=== PATIENT | male | born 1965 | race American Indian/Alaskan Native ===

== ENCOUNTER 2018-10-08 18:38 | Emergency (ER) | payer MEDICARE ==
--- NOTE | 2018-10-08 19:33 | Emergency Department Report ---
Blank Doc - Documentation Documentation: This is a 53-year-old male that presents with rectal pain. Had a colonoscopy earlier today. This initial assessment/diagnostic orders/clinical plan/treatment(s) is/are subject to change based on patient's health status, clinical progression and re- assessment by fellow clinical providers in the ED. Further treatment and workup at subsequent clinical providers discretion. Patient/guardians urged not to elope from the ED as their condition may be serious if not clinically assessed and managed. Initial orders include: 1- Patient sent to MAIN ED for further evaluation and treatment 2- labs 3- UA
[2018-10-08] MEDS ORDERED: SUBLIMAZE IV ONE ×2 (19:57→21:37)
[2018-10-08] MEDS ORDERED: ZOFRAN IV ONE (19:57)
--- NOTE | 2018-10-08 20:06 | Emergency Department Report ---
HPI - General Chief Complaint: Rectal Pain Time Seen by Provider: 10/08/18 19:32 - HPI HPI: Room 21 The patient is a 53-year-old male presenting with a chief complaint pain after colonoscopy. Patient complains of pain in the rectum buttocks testicles and abdomen. The patient states he had a colonoscopy with multiple biopsies performed this morning at [facility]. The patient states he went home hoping the pain would improve but it has not. The patient states she has not contacted the [facility] physician who performed procedure. The patient states he was not given any medication to go home with Location: [See above] Duration: [See above] Quality: Pain Severity: 12/27 Modifying factors: [see above] Context: [see above] Mode of transportation: [not driving] ED Past Medical Hx - Past Medical History Hx Diabetes: Yes Hx Asthma: Yes Additional medical history: neuropathy, enlarge heart - Surgical History Additional Surgical History: Benign brain tumor removal - Family History Family history: no significant - Social History Smoking Status: Current Some Day Smoker Substance Use Type: Marijuana - Medications Home Medications: Home Medications Medication Instructions Recorded Confirmed Last Taken Type traMADol [Ultram 50 MG tab] 50 mg PO Q6H PRN #10 tablet 07/27/18 Unknown Rx Ibuprofen [Motrin 800 MG tab] 800 mg PO Q8HR PRN #10 tablet 10/09/18 Unknown Rx levoFLOXacin [Levaquin] 750 mg PO QDAY #10 tablet 10/09/18 Unknown Rx traMADol [Ultram] 50 mg PO Q6HR PRN #10 tablet 10/09/18 Unknown Rx ED Review of Systems ROS: Stated complaint: PAIN IN GENITALS Other details as noted in HPI Constitutional: no symptoms reported Eyes: denies: eye pain ENT: denies: throat pain Respiratory: no symptoms reported Cardiovascular: denies: chest pain Endocrine: no symptoms reported Gastrointestinal: abdominal pain Genitourinary: testicular pain. denies: dysuria Skin: denies: lesions Neurological: denies: headache Physical Exam - Physical Exam Vital Signs: Vital Signs 10/08/18 18:42 Temperature 98.1 F Pulse Rate 109 H Respiratory 19 Rate Blood Pressure 139/88 [Right] O2 Sat by Pulse 99 Oximetry Physical Exam: GENERAL: The patient is well-developed well-nourished male sitting on stretcher appearing to be in moderate discomfort. [] HEENT: Normocephalic. Atraumatic. Extraocular motions are intact. Patient has moist mucous membranes. NECK: Supple. Trachea midline CHEST/LUNGS: Clear to auscultation. There is no respiratory distress noted. HEART/CARDIOVASCULAR: Regular. There is no tachycardia. There is no gallop rub or murmur. ABDOMEN: Abdomen is soft, with mild discomfort to palpation in the midepigastric and right upper quadrant. Patient has normal bowel sounds. There is no abdominal distention. SKIN: There is no rash. There is no edema. There is no diaphoresis. NEURO: The patient is awake, alert, and oriented. The patient is cooperative. The patient has normal speech MUSCULOSKELETAL: There is no evidence of acute injury. ED Course Vital Signs 10/08/18 18:42 Temperature 98.1 F Pulse Rate 109 H Respiratory 19 Rate Blood Pressure 139/88 [Right] O2 Sat by Pulse 99 Oximetry ED Medical Decision Making - Lab Data Result diagrams: 10/08/18 20:07 10/08/18 20:07 Laboratory Tests 10/08/18 10/08/18 10/08/18 20:07 20:07 20:07 WBC 7.4 RBC 4.95 Hgb 14.0 Hct 42.3 MCV 85 MCH 28 MCHC 33 RDW 13.3 Plt Count 177 Lymph % (Auto) 12.9 L [place] % (Auto) 7.4 H Eos % (Auto) 0.3 Baso % (Auto) 0.5 Lymph # 1.0 L [place] # 0.6 Eos # 0.0 Baso # 0.0 Seg Neutrophils % 78.9 H Seg Neutrophils # 5.8 PT 13.2 INR 1.03 APTT 26.9 Sodium 135 L Potassium 4.4 Chloride 98.1 Carbon Dioxide 25 Anion Gap 16 BUN 14 Creatinine 0.8 Estimated GFR > 60 BUN/Creatinine Ratio 18 Glucose 325 H Calcium 9.5 Total Bilirubin 0.50 AST 14 ALT 16 Alkaline Phosphatase 140 H Total Protein 7.6 Albumin 4.2 Albumin/Globulin Ratio 1.2 Urine Color Urine Turbidity Urine pH Ur Specific [place] Urine Protein Urine Glucose (UA) Urine Ketones Urine Blood Urine Nitrite Urine Bilirubin Urine Urobilinogen Ur Leukocyte Esterase Urine WBC (Auto) Urine RBC (Auto) Urine WBC Clumps Urine Yeast (Budding) 10/08/18 21:30 WBC RBC Hgb Hct MCV MCH MCHC RDW Plt Count Lymph % (Auto) [place] % (Auto) Eos % (Auto) Baso % (Auto) Lymph # [place] # Eos # Baso # Seg Neutrophils % Seg Neutrophils # PT INR APTT Sodium Potassium Chloride Carbon Dioxide Anion Gap BUN Creatinine Estimated GFR BUN/Creatinine Ratio Glucose Calcium Total Bilirubin AST ALT Alkaline Phosphatase Total Protein Albumin Albumin/Globulin Ratio Urine Color Red Urine Turbidity Cloudy Urine pH 6.0 Ur Specific [place] 1.036 H Urine Protein 100 mg/dl Urine Glucose (UA) >=500 Urine Ketones Tr Urine Blood Lg Urine Nitrite Neg Urine Bilirubin Neg Urine Urobilinogen < 2.0 Ur Leukocyte Esterase Neg Urine WBC (Auto) > 182.0 H Urine RBC (Auto) > 182.0 Urine WBC Clumps 3+ Urine Yeast (Budding) 3+ - Radiology Data Radiology results: report reviewed (CT abdomen and pelvis, testicular ultras ound), image reviewed (CT abdomen and pelvis, testicular ultrasound) [place] [address] Cat Scan Report Signed Patient: EDUARDO RUSSELL MR#: [id number] [birth year] : 1965 Acct:[id number] Age/Sex: 53 / M ADM Date: 10/08/18 Loc: ED Attending Dr: Ordering Physician: DANNY FLORES MD Date of Service: 10/08/18 Procedure(s): CT abdomen pelvis w con Accession Number(s): [id number] cc: DANNY FLORES MD CT ABDOMEN AND PELVIS WITH CONTRAST INDICATION / CLINICAL INFORMATION: abd pain after colonoscopy around 11 a.m today blood in urine and stool . TECHNIQUE: Axial CT images were obtained through the abdomen and pelvis after IV contrast. All CT scans at this location are performed using CT dose reduction for ALARA by means of automated exposure control. COMPARISON: None available. FINDINGS: LOWER CHEST: No significant abnormality. LIVER: No significant abnormality. GALLBLADDER: No significant abnormality. BILE DUCTS: No significant abnormality. PANCREAS: No significant abnormality. SPLEEN: No significant abnormality. ADRENALS: No significant abnormality. RIGHT KIDNEY and URETER: No significant abnormality. LEFT KIDNEY and URETER: No significant abnormality. STOMACH and SMALL BOWEL: No significant abnormality. COLON: No significant abnormality. APPENDIX: No significant abnormality. PERITONEUM: No free fluid. No free air. No fluid collection. LYMPH NODES: No significant adenopathy. AORTA and ARTERIES: No significant abnormality. IVC and VEINS: No significant abnormality. URINARY BLADDER: No significant abnormality. REPRODUCTIVE ORGANS: No significant abnormality. ADDITIONAL FINDINGS: None. SKELETAL SYSTEM: No significant abnormality. IMPRESSION: 1. No significant abnormality. Signer Name: Saman Miller MD Signed: 10/08/2018 9:51 PM Workstation Name: [id number] Transcribed By: ADENIKE Dictated By: Saman Miller MD Electronically Authenticated By: Saman Miller MD Signed Date/Time: 10/08/182150 DD/ 49 TD/TT: - Medical Decision Making [facility] was contacted and state they have no record of the patient being there today for colonoscopy. - Differential Diagnosis bowel perforation, postop pain, UTI Critical care attestation.: If time is entered above; I have spent that time in minutes in the direct care of this critically ill patient, excluding procedure time. ED Disposition Clinical Impression: Abdominal pain, UTI (urinary tract infection) Disposition: TO HOME OR SELFCARE Is pt being admited?: No Does the pt Need Aspirin: No Condition: Stable Instructions: Urinary Tract Infection in Men (ED) Additional Instructions: Return to the emergency department immediately should you develop worsening symptoms, fever, inability to tolerate food or liquid or any other concerns. Prescriptions: levoFLOXacin [Levaquin] 750 mg PO QDAY #10 tablet Ibuprofen [Motrin 800 MG tab] 800 mg PO Q8HR PRN #10 tablet PRN Reason: Pain, Moderate (4-6) traMADol [Ultram] 50 mg PO Q6HR PRN #10 tablet PRN Reason: Pain Referrals: PRIMARY CARE, [Primary Care Provider] - [facility] [place] Time of Disposition: 01:04
[2018-10-08 20:23] LABS: Basophils % (Auto) 0.5 % (0.0-1.8); Eosinophils % (Auto) 0.3 % (0.0-4.3); Hematocrit 42.3 % (35.5-45.6); Lymphocytes % (Auto) 12.9 % (13.4-35.0); Mean Corpuscular HGB Conc 33 % (32-34); Mean Corpuscular Volume 85 fl (84-94); Monocytes # (Auto) 0.6 K/mm3 (0.0-0.8); Monocytes % (Auto) 7.4 % (0.0-7.3); Platelet Count 177 K/mm3 (140-440); Red Blood Count 4.95 M/mm3 (3.65-5.03); Red Cell Distribution Width 13.3 % (13.2-15.2)
[2018-10-08 20:31] LABS: INR 1.03 (0.87-1.13)
[2018-10-08 20:32] LABS: Partial Thromboplastin Time 26.9 Sec. (24.2-36.6)
[2018-10-08 20:47] LABS: Alanine Aminotransferase 16 units/L (7-56); Albumin 4.2 g/dL (3.9-5); BUN/Creatinine Ratio 18; Blood Urea Nitrogen 14 mg/dL (9-20); Calcium 9.5 mg/dL (8.4-10.2); Hemolysis Index 11
--- NOTE | 2018-10-08 21:55 | Cat Scan Report ---
CT ABDOMEN AND PELVIS WITH CONTRAST INDICATION / CLINICAL INFORMATION: abd pain after colonoscopy around 11 a.m today blood in urine and stool . TECHNIQUE: Axial CT images were obtained through the abdomen and pelvis after IV contrast. All CT scans at this location are performed using CT dose reduction for ALARA by means of automated exposure control. COMPARISON: None available. FINDINGS: LOWER CHEST: No significant abnormality. LIVER: No significant abnormality. GALLBLADDER: No significant abnormality. BILE DUCTS: No significant abnormality. PANCREAS: No significant abnormality. SPLEEN: No significant abnormality. ADRENALS: No significant abnormality. RIGHT KIDNEY and URETER: No significant abnormality. LEFT KIDNEY and URETER: No significant abnormality. STOMACH and SMALL BOWEL: No significant abnormality. COLON: No significant abnormality. APPENDIX: No significant abnormality. PERITONEUM: No free fluid. No free air. No fluid collection. LYMPH NODES: No significant adenopathy. AORTA and ARTERIES: No significant abnormality. IVC and VEINS: No significant abnormality. URINARY BLADDER: No significant abnormality. REPRODUCTIVE ORGANS: No significant abnormality. ADDITIONAL FINDINGS: None. SKELETAL SYSTEM: No significant abnormality. IMPRESSION: 1. No significant abnormality. Signer Name: Saman Miller MD Signed: 10/08/2018 9:51 PM Workstation Name: [id number]
[2018-10-08 22:08] LABS: Bilirubin,Urine NEG (Negative); Blood,Urine LG (Negative); Color,Urine Red (Yellow); Urobilinogen,Urine < 2.0 mg/dL (<2.0)
[2018-10-08 22:24] LABS: RBC,Urine > 182.0 /HPF (0.0-6.0); WBC,Urine > 182.0 /HPF (0.0-6.0)
[2018-10-08 23:27] VITALS: BP 145/92
[2018-10-09] MEDS ORDERED: NORCO 5/325 PO ONE (00:14)
[2018-10-09] MEDS ORDERED: LEVAQUIN PO ONE (00:37)
--- NOTE | 2018-10-09 00:54 | Ultrasound Report ---
ULTRASOUND SCROTUM INDICATION: bilateral testicle pain. COMPARISON None available. FINDINGS -- RIGHT TESTIS: Size: 3.4 x 2.1 x 3.2 cm. Echotexture: Normal. Color Doppler Flow: Normal. Lesions: None. EPIDIDYMIS: Size: Normal. Echotexture: Normal. Color Doppler Flow: Normal. Lesions: None. Hydrocele: None. Varicocele: None. Additional Findings: None. FINDINGS -- LEFT TESTIS: Size: 3.5 x 1.8 x 3.4 cm. Echotexture: Normal. Color Doppler Flow: Normal. Lesions: None. EPIDIDYMIS: Size: Normal. Echotexture: Normal. Color Doppler Flow: Normal. Lesions: None. Hydrocele: None. Varicocele: None. Additional Findings: None. IMPRESSION: No sonographic abnormality of the scrotum. Signer Name: Jaime Schofield MD Signed: 10/09/2018 12:50 AM Workstation Name: [id number]
== END 2018-10-09 01:13 | disposition home or self-care (01) ==
LOC: ED 18:38
DX: N39.0 Urinary tract infection, site not specified (principal); E11.9 Type 2 diabetes mellitus without complications; J45.909 Unspecified asthma, uncomplicated; F17.200 Nicotine dependence, unspecified, uncomplicated; F12.10 Cannabis abuse, uncomplicated; Z79.899 Other long term (current) drug therapy; Z88.2 Allergy status to sulfonamides; Z86.011 Personal history of benign neoplasm of the brain; Z88.8 Allergy status to other drugs, medicaments and biological substances
CPT/HCPCS: 36415; 74177; 80053; 81001; 85025; 85610; 85730; 93975; 96374; 96375; 96376; 99284; J2405; J3010; Q9967

== ENCOUNTER 2018-11-06 06:38 | Emergency (ER) | payer MEDICARE ==
[2018-11-06] MEDS ORDERED: ZOFRAN IV ONE (07:04)
[2018-11-06] MEDS ORDERED: MORPHINE IV ONE ×2 (07:04→09:39)
--- NOTE | 2018-11-06 07:08 | Emergency Department Report ---
ED General Adult HPI - General Chief complaint: Abdominal Pain Stated complaint: ABDOMINAL PAIN/HYPERGLYCEMIA Time Seen by Provider: 11/06/18 06:50 Source: patient, EMS Mode of arrival: Stretcher Limitations: No Limitations - History of Present Illness Initial comments: Patient presents to the emergency department with a chief complaint of abdominal pain that has prompted this worse over the last 7 days. Patient states that he had a colonoscopy about a week and a half ago. Patient states after the colonoscopy he became septic and was hospitalized at [facility]. Patient also complains of upper and lower extremities. Patient denies chest pain, shortness breath, or headache. -: Gradual Location: abdomen Radiation: non-radiation Severity scale (0 -10): 8 Quality: sharp Consistency: constant Improves with: none Worsens with: none Associated Symptoms: denies other symptoms Treatments Prior to Arrival: none - Related Data Previous Rx's Medication Instructions Recorded Last Taken Type traMADol [Ultram 50 MG tab] 50 mg PO Q6H PRN #10 tablet 07/27/18 Unknown Rx Ibuprofen [Motrin 800 MG tab] 800 mg PO Q8HR PRN #10 tablet 10/09/18 Unknown Rx levoFLOXacin [Levaquin] 750 mg PO QDAY #10 tablet 10/09/18 Unknown Rx traMADol [Ultram] 50 mg PO Q6HR PRN #10 tablet 10/09/18 Unknown Rx Dicyclomine [Bentyl] 10 mg PO QID PRN #20 capsule 11/06/18 Unknown Rx Metoclopramide [Reglan] 10 mg PO Q6HR PRN #20 tab 11/06/18 Unknown Rx Allergies Allergy/AdvReac Type Severity Reaction Status Date / Time sulfamethoxazole Allergy Itching Verified 10/08/18 19:32 [From Bactrim] trimethoprim [From Bactrim] Allergy Itching Verified 10/08/18 19:32 ED Review of Systems ROS: Stated complaint: ABDOMINAL PAIN/HYPERGLYCEMIA Other details as noted in HPI Comment: All other systems reviewed and negative Constitutional: denies: chills, fever Eyes: denies: eye pain, eye discharge, vision change ENT: denies: ear pain, throat pain Respiratory: denies: cough, shortness of breath, wheezing Cardiovascular: denies: chest pain, palpitations Endocrine: no symptoms reported Gastrointestinal: abdominal pain. denies: nausea, diarrhea Genitourinary: denies: urgency, dysuria Musculoskeletal: denies: back pain, joint swelling, arthralgia Skin: denies: rash, lesions Neurological: denies: headache, weakness, paresthesias Psychiatric: denies: anxiety, depression Hematological/Lymphatic: denies: easy bleeding, easy bruising ED Past Medical Hx - Past Medical History Previous Medical History?: Yes Hx Hypertension: Yes Hx Diabetes: Yes Hx Asthma: Yes Additional medical history: neuropathy, enlarge heart - Surgical History Past Surgical History?: Yes Additional Surgical History: Benign brain tumor removal - Social History Smoking Status: Current Every Day Smoker Substance Use Type: None - Medications Home Medications: Home Medications Medication Instructions Recorded Confirmed Last Taken Type traMADol [Ultram 50 MG tab] 50 mg PO Q6H PRN #10 tablet 07/27/18 Unknown Rx Ibuprofen [Motrin 800 MG tab] 800 mg PO Q8HR PRN #10 tablet 10/09/18 Unknown Rx levoFLOXacin [Levaquin] 750 mg PO QDAY #10 tablet 10/09/18 Unknown Rx traMADol [Ultram] 50 mg PO Q6HR PRN #10 tablet 10/09/18 Unknown Rx Dicyclomine [Bentyl] 10 mg PO QID PRN #20 capsule 11/06/18 Unknown Rx Metoclopramide [Reglan] 10 mg PO Q6HR PRN #20 tab 11/06/18 Unknown Rx ED Physical Exam - General Limitations: No Limitations General appearance: alert, in no apparent distress - Head Head exam: Present: atraumatic, normocephalic - Eye Eye exam: Present: normal appearance - ENT ENT exam: Present: mucous membranes moist - Neck Neck exam: Present: normal inspection - Respiratory Respiratory exam: Present: normal lung sounds bilaterally. Absent: respiratory distress - Cardiovascular Cardiovascular Exam: Present: regular rate, normal rhythm. Absent: systolic murmur, diastolic murmur, rubs, gallop - GI/Abdominal GI/Abdominal exam: Present: soft, tenderness (Diffusely TTP), normal bowel sounds. Absent: distended - Rectal Rectal exam: Present: deferred - Extremities Exam Extremities exam: Present: normal inspection - Back Exam Back exam: Present: normal inspection - Neurological Exam Neurological exam: Present: alert, oriented X3, CN II-XII intact. Absent: motor sensory deficit - Psychiatric Psychiatric exam: Present: normal affect, normal mood - Skin Skin exam: Present: warm, dry, intact, normal color. Absent: rash ED Course Vital Signs 11/06/18 11/06/18 06:47 07:31 Temperature 98.3 F 97.7 F Pulse Rate 86 82 Respiratory 16 16 Rate Blood Pressure 123/86 127/85 [Left] O2 Sat by Pulse 100 96 Oximetry ED Medical Decision Making - Lab Data Result diagrams: 11/06/18 07:09 11/06/18 07:09 Lab Results 11/06/18 11/06/18 11/06/18 Range/Units 07:09 07:09 10:34 WBC 5.6 (4.5-11.0) K/mm3 RBC 4.69 (3.65-5.03) M/mm3 Hgb 13.3 (11.8-15.2) gm/dl Hct 39.3 (35.5-45.6) % MCV 84 (84-94) fl MCH 28 (28-32) pg MCHC 34 (32-34) % RDW 13.5 (13.2-15.2) % Plt Count 223 (140-440) K/mm3 Lymph % (Auto) 25.2 (13.4-35.0) % [place] % (Auto) 13.1 H (0.0-7.3) % Eos % (Auto) 0.6 (0.0-4.3) % Baso % (Auto) 1.2 (0.0-1.8) % Lymph # 1.4 (1.2-5.4) K/mm3 [place] # 0.7 (0.0-0.8) K/mm3 Eos # 0.0 (0.0-0.4) K/mm3 Baso # 0.1 (0.0-0.1) K/mm3 Seg Neutrophils % 59.9 (40.0-70.0) % Seg Neutrophils # 3.4 (1.8-7.7) K/mm3 Sodium 127 L (137-145) mmol/L Potassium 4.7 (3.6-5.0) mmol/L Chloride 88.9 L (98-107) mmol/L Carbon Dioxide 27 (22-30) mmol/L Anion Gap 16 mmol/L BUN 23 H (9-20) mg/dL Creatinine 0.9 (0.8-1.5) mg/dL Estimated GFR > 60 ml/min BUN/Creatinine Ratio 26 % Glucose 542 H* (75-100) mg/dL POC Glucose 458 H (70-105) Calcium 8.9 (8.4-10.2) mg/dL Total Bilirubin 0.30 (0.1-1.2) mg/dL AST 14 (5-40) units/L ALT 17 (7-56) units/L Alkaline Phosphatase 236 H (35-129) units/L Total Protein 7.1 (6.3-8.2) g/dL Albumin 3.5 L (3.9-5) g/dL Albumin/Globulin Ratio 1.0 % Lipase 63 H (13-60) units/L - Radiology Data Radiology results: report reviewed - Medical Decision Making IV insulin and IV fluids given results discussed with patient Critical care attestation.: If time is entered above; I have spent that time in minutes in the direct care of this critically ill patient, excluding procedure time. ED Disposition Clinical Impression: Gastroparesis, Abdominal pain, Hyperglycemia Disposition: TO HOME OR SELFCARE Is pt being admited?: No Does the pt Need Aspirin: No Condition: Stable Instructions: Acute Nausea and Vomiting (ED), Abdominal Pain (ED), Diabetic Hyperglycemia (ED) Additional Instructions: return if worse Referrals: TONY COE MD [Primary Care Provider] - 3-5 Days [facility] [Provider Group] - 3-5 Days [facility] [Provider Group] - 3-5 Days Time of Disposition: 10:43
[2018-11-06 07:18] LABS: Basophils # (Auto) 0.1 K/mm3 (0.0-0.1); Basophils % (Auto) 1.2 % (0.0-1.8); Eosinophils % (Auto) 0.6 % (0.0-4.3); Hematocrit 39.3 % (35.5-45.6); Hemoglobin 13.3 gm/dl (11.8-15.2); Lymphocytes # (Auto) 1.4 K/mm3 (1.2-5.4); Lymphocytes % (Auto) 25.2 % (13.4-35.0); Mean Corpuscular HGB Conc 34 % (32-34); Mean Corpuscular Volume 84 fl (84-94); Monocytes # (Auto) 0.7 K/mm3 (0.0-0.8); Monocytes % (Auto) 13.1 % (0.0-7.3); Platelet Count 223 K/mm3 (140-440); Red Blood Count 4.69 M/mm3 (3.65-5.03); Red Cell Distribution Width 13.5 % (13.2-15.2)
[2018-11-06 07:33] VITALS: BP 127/85
[2018-11-06 07:39] LABS: Alanine Aminotransferase 17 units/L (7-56); Albumin 3.5 g/dL (3.9-5); BUN/Creatinine Ratio 26; Blood Urea Nitrogen 23 mg/dL (9-20); Calcium 8.9 mg/dL (8.4-10.2); Hemolysis Index 6
[2018-11-06] MEDS ORDERED: NACL 0.9% 1000 ML 1,000 ML IV ONE (07:47)
[2018-11-06] MEDS ORDERED: REGLAN IV ONE (07:47)
[2018-11-06] MEDS ORDERED: BENADRYL IV ONE (07:47)
--- NOTE | 2018-11-06 08:28 | Cat Scan Report ---
CT ABDOMEN AND PELVIS WITH CONTRAST HISTORY: Abdominal pain for 3 weeks COMPARISON: 10/08/2018 TECHNIQUE: Axial CT images were obtained through the abdomen and pelvis after 100 cc of Omnipaque 300 intravenously. Sagittal and coronal reformatted images. All CT scans at this location are performed using CT dose reduction for ALARA by means of automated exposure control. FINDINGS: CT ABDOMEN: Lung Bases: Clear. Liver: No significant abnormality. Biliary: No significant abnormality. Spleen: No significant abnormality. Unenlarged. Pancreas: No significant abnormality. Adrenals: No significant abnormality. Kidneys: No significant abnormality. Lymphatics: No lymphadenopathy. Vasculature: No significant abnormality. Bowel/Peritoneum: No significant abnormality. No free air. No free fluid. The appendix is not confide ntly identified. No inflammatory changes in the right lower quadrant. CT PELVIS: : No significant abnormality. Osseous Structures: No significant abnormality. Additional Findings: None IMPRESSION: CT abdomen and pelvis within normal limits. No abnormality is identified. No change since 10/08/2018. Signer Name: Reji Bravo Jr, MD Signed: 11/06/2018 8:24 AM Workstation Name: [id number]
[2018-11-06] MEDS ORDERED: HumuLIN R SUB-Q ONE (09:40)
== END 2018-11-06 10:59 | disposition home or self-care (01) ==
LOC: ED 06:38
DX: E11.43 Type 2 diabetes mellitus with diabetic autonomic (poly)neuropathy (principal); K31.84 Gastroparesis; E11.65 Type 2 diabetes mellitus with hyperglycemia; I10 Essential (primary) hypertension; J45.909 Unspecified asthma, uncomplicated; F17.200 Nicotine dependence, unspecified, uncomplicated; Z98.890 Other specified postprocedural states; Z88.2 Allergy status to sulfonamides; Z79.1 Long term (current) use of non-steroidal anti-inflammatories (NSAID); Z79.899 Other long term (current) drug therapy
CPT/HCPCS: 36415; 74177; 80053; 82962; 83690; 85025; 96361; 96372; 96374; 96375; 96376; 99284; J1200; J2270; J2405; J2765; J7030; Q9967; J1815

== ENCOUNTER 2019-01-21 03:43 | Emergency (ER) | payer MEDICARE ==
[2019-01-21] MEDS ORDERED: ONDANSETRON 4 MG/2 ML INJ IM ONE (04:12)
[2019-01-21] MEDS ORDERED: MORPHINE 4 MG/1 ML INJ IM ONE (04:12)
[2019-01-21] MEDS ORDERED: ONDANSETRON 4 MG/2 ML INJ ONE (04:14)
[2019-01-21] MEDS ORDERED: MORPHINE 4 MG/1 ML INJ ONE (04:15)
--- NOTE | 2019-01-21 04:15 | Emergency Department Report ---
ED General Adult HPI - General Chief complaint: Pain General Stated complaint: NEUROPATHY Time Seen by Provider: 01/21/19 04:07 Source: EMS Mode of arrival: Ambulatory Limitations: No Limitations - History of Present Illness Initial comments: Patient is 53 years old male with history of diabetes, hypertension, neuropathy and posterior arthritis. Patient presented to the ER complaining of generalized body pain and joint pain. Denied any fever, chills, nausea or vomiting. No chest pain or shortness of breath. - Related Data Previous Rx's Medication Instructions Recorded Last Taken Type traMADol [Ultram 50 MG tab] 50 mg PO Q6H PRN #10 tablet 07/27/18 Unknown Rx Ibuprofen [Motrin 800 MG tab] 800 mg PO Q8HR PRN #10 tablet 10/09/18 Unknown Rx levoFLOXacin [Levaquin] 750 mg PO QDAY #10 tablet 10/09/18 Unknown Rx traMADol [Ultram] 50 mg PO Q6HR PRN #10 tablet 10/09/18 Unknown Rx Dicyclomine [Bentyl] 10 mg PO QID PRN #20 capsule 11/06/18 Unknown Rx Metoclopramide [Reglan] 10 mg PO Q6HR PRN #20 tab 11/06/18 Unknown Rx Allergies Allergy/AdvReac Type Severity Reaction Status Date / Time sulfamethoxazole Allergy Itching Verified 10/08/18 19:32 [From Bactrim] trimethoprim [From Bactrim] Allergy Itching Verified 10/08/18 19:32 ED Review of Systems ROS: Stated complaint: NEUROPATHY Other details as noted in HPI Comment: All other systems reviewed and negative Constitutional: denies: chills, fever Respiratory: denies: cough, shortness of breath, SOB with exertion Cardiovascular: denies: chest pain, palpitations Gastrointestinal: denies: abdominal pain, nausea, vomiting, diarrhea, constipation, hematemesis, melena, hematochezia ED Past Medical Hx - Past Medical History Previous Medical History?: Yes Hx Hypertension: Yes Hx Diabetes: Yes Hx Asthma: Yes Additional medical history: neuropathy, enlarge heart - Surgical History Additional Surgical History: Benign brain tumor removal - Social History Smoking Status: Current Every Day Smoker Substance Use Type: Marijuana - Medications Home Medications: Home Medications Medication Instructions Recorded Confirmed Last Taken Type traMADol [Ultram 50 MG tab] 50 mg PO Q6H PRN #10 tablet 07/27/18 Unknown Rx Ibuprofen [Motrin 800 MG tab] 800 mg PO Q8HR PRN #10 tablet 10/09/18 Unknown Rx levoFLOXacin [Levaquin] 750 mg PO QDAY #10 tablet 10/09/18 Unknown Rx traMADol [Ultram] 50 mg PO Q6HR PRN #10 tablet 10/09/18 Unknown Rx Dicyclomine [Bentyl] 10 mg PO QID PRN #20 capsule 11/06/18 Unknown Rx Metoclopramide [Reglan] 10 mg PO Q6HR PRN #20 tab 11/06/18 Unknown Rx ED Physical Exam - General Limitations: No Limitations General appearance: alert, in no apparent distress - Head Head exam: Present: atraumatic, normocephalic, normal inspection - Eye Eye exam: Present: normal appearance, PERRL - ENT ENT exam: Present: normal exam, normal orophraynx, mucous membranes moist - Neck Neck exam: Present: normal inspection, full ROM. Absent: tenderness, meningismus, lymphadenopathy, thyromegaly - Respiratory Respiratory exam: Present: normal lung sounds bilaterally - Cardiovascular Cardiovascular Exam: Present: regular rate, normal rhythm, normal heart sounds - GI/Abdominal GI/Abdominal exam: Present: soft, normal bowel sounds. Absent: distended, tenderness, guarding, rebound, rigid, organomegaly, mass, bruit, pulsatile mass, hernia - Extremities Exam Extremities exam: Present: normal inspection, full ROM, normal capillary refill. Absent: pedal edema, calf tenderness - Back Exam Back exam: Present: normal inspection, full ROM. Absent: CVA tenderness (R), CVA tenderness (L), muscle spasm, paraspinal tenderness - Neurological Exam Neurological exam: Present: alert, oriented X3, CN II-XII intact - Psychiatric Psychiatric exam: Present: normal mood - Skin Skin exam: Present: warm, intact, normal color ED Course Vital Signs 01/21/19 03:57 Temperature 98.4 F Pulse Rate 95 H Respiratory 18 Rate Blood Pressure 123/80 O2 Sat by Pulse 100 Oximetry ED Medical Decision Making - Lab Data Result diagrams: 01/21/19 05:23 - Radiology Data Radiology results: report reviewed - Medical Decision Making Patient is 53 years old male with history of diabetes, hypertension, neuropathy and posterior arthritis. Patient presented to the ER complaining of generalized body pain and joint pain. Denied any fever, chills, nausea or vomiting. No chest pain or shortness of breath. Patient received morphine 4 mg and Zofran. Patient stated that he is feeling much better. Labs reviewed and is unremarkable. Patient stated that he has an appointment she is primary care doctor in the morning I advised him to keep his appointment and I also advised him to return to the ER if his pain is not improved. Critical care attestation.: If time is entered above; I have spent that time in minutes in the direct care of this critically ill patient, excluding procedure time. ED Disposition Clinical Impression: Acute pain Disposition: DC-01 TO HOME OR SELFCARE Is pt being admited?: No Condition: Stable Instructions: Chronic Pain (ED) Referrals: PRIMARY CARE, [Referring] - 3-5 Days
[2019-01-21 05:44] LABS: Basophils % (Auto) 0.8 % (0.0-1.8); Eosinophils # (Auto) 0.1 K/mm3 (0.0-0.4); Hematocrit 35.8 % (35.5-45.6); Hemoglobin 11.9 gm/dl (11.8-15.2); Lymphocytes # (Auto) 1.4 K/mm3 (1.2-5.4); Lymphocytes % (Auto) 23.2 % (13.4-35.0); Mean Corpuscular HGB Conc 33 % (32-34); Mean Corpuscular Volume 83 fl (84-94); Monocytes # (Auto) 0.5 K/mm3 (0.0-0.8); Monocytes % (Auto) 8.3 % (0.0-7.3); Platelet Count 171 K/mm3 (140-440); Red Blood Count 4.32 M/mm3 (3.65-5.03); Red Cell Distribution Width 14.2 % (13.2-15.2)
[2019-01-21 06:11] LABS: Alanine Aminotransferase 29 units/L (7-56); Albumin 3.9 g/dL (3.9-5); BUN/Creatinine Ratio 23; Bilirubin,Direct < 0.2 mg/dL (0-0.2); Blood Urea Nitrogen 21 mg/dL (9-20); Calcium 9.6 mg/dL (8.4-10.2); Hemolysis Index 3
[2019-01-21 07:06] VITALS: BP 111/64
== END 2019-01-21 07:02 | disposition home or self-care (01) ==
LOC: ED 03:43
DX: E11.40 Type 2 diabetes mellitus with diabetic neuropathy, unspecified (principal); I10 Essential (primary) hypertension; M19.90 Unspecified osteoarthritis, unspecified site; J45.909 Unspecified asthma, uncomplicated; F17.200 Nicotine dependence, unspecified, uncomplicated; F12.10 Cannabis abuse, uncomplicated; Z88.2 Allergy status to sulfonamides; Z88.8 Allergy status to other drugs, medicaments and biological substances; Z79.899 Other long term (current) drug therapy; Z79.1 Long term (current) use of non-steroidal anti-inflammatories (NSAID)
CPT/HCPCS: 36415; 80048; 80076; 83880; 85025; 96372; 99283; J2270; J2405

== ENCOUNTER 2019-02-02 23:11 | Emergency (ER) | payer MEDICARE ==
[2019-02-03] MEDS ORDERED: KETOROLAC 30 MG/1 ML INJ IM ONE (01:23)
--- NOTE | 2019-02-03 01:46 | Emergency Department Report ---
ED Extremity Problem HPI - General Chief complaint: Extremity Injury, Lower Stated complaint: LEG SWELLING AND PAIN Time Seen by Provider: 02/03/19 01:22 Source: patient, EMS Mode of arrival: Stretcher Limitations: No Limitations - History of Present Illness Initial comments: 53-year-old -[place] male presents to the emergency room for chronic p ain and swelling to both legs. Patient states when they get cold and he is walking makes it worse. Patient is taking nothing for pain. Patient reports he tried gabapentin because he has neuropathy which he reports has not helped. Patient has a past medical history diabetes hypertension neuropathy asthma cardiomegaly. His primary care doctor is Dr. Galloway at [place]. She was recently seen here this month for the same complaint and was given prescription for tramadol. Patient was seen here 01/21/2019 was given a prescription for Tylenol but I do not see it under the [facility] narcotic monitoring system. Patient was offered Toradol injection. Patient be given a prescription for ibuprofen 600 mg for pain management. Patient will be given a referral to paintings conservator. I discussed the patient that we do not give IV morphine for chronic pain here in the emergency room. I discussed with patient that is to be given to him by a specialist and pain management. MD Complaint: extremity pain Location: bilateral lower extremity History of Same: Yes -: Yes myalgia, Yes arthralgia Severity scale (0 -10): 10 Quality: constant Consistency: constant Improves with: nothing Worsens with: weight bearing, walking - Related Data Previous Rx's Medication Instructions Recorded Last Taken Type traMADoL [Ultram 50 MG tab] 50 mg PO Q6H PRN #10 tablet 07/27/18 Unknown Rx Ibuprofen [Motrin 800 MG tab] 800 mg PO Q8HR PRN #10 tablet 10/09/18 Unknown Rx levoFLOXacin [Levaquin] 750 mg PO QDAY #10 tablet 10/09/18 Unknown Rx traMADoL [Ultram] 50 mg PO Q6HR PRN #10 tablet 10/09/18 Unknown Rx Dicyclomine [Bentyl] 10 mg PO QID PRN #20 capsule 11/06/18 Unknown Rx Metoclopramide [Reglan] 10 mg PO Q6HR PRN #20 tab 11/06/18 Unknown Rx Ondansetron [Zofran Odt] 4 mg PO Q8HR PRN #14 tab.rapdis 01/21/19 Unknown Rx traMADoL [Ultram 50 MG tab] 50 mg PO Q4HR PRN #14 tablet 01/21/19 Unknown Rx Ibuprofen [Motrin 600 MG tab] 600 mg PO Q8H PRN #30 tablet 02/03/19 Unknown Rx Allergies Allergy/AdvReac Type Severity Reaction Status Date / Time sulfamethoxazole Allergy Itching Verified 02/02/19 23:13 [From Bactrim] trimethoprim [From Bactrim] Allergy Itching Verified 02/02/19 23:13 ED Review of Systems ROS: Stated complaint: LEG SWELLING AND PAIN Other details as noted in HPI Comment: All other systems reviewed and negative ED Past Medical Hx - Past Medical History Previous Medical History?: Yes Hx Hypertension: Yes Hx Diabetes: Yes Hx Asthma: Yes Additional medical history: neuropathy, enlarge heart - Surgical History Past Surgical History?: Yes Additional Surgical History: Benign brain tumor removal - Social History Smoking Status: Current Every Day Smoker Substance Use Type: Marijuana - Medications Home Medications: Home Medications Medication Instructions Recorded Confirmed Last Taken Type traMADoL [Ultram 50 MG tab] 50 mg PO Q6H PRN #10 tablet 07/27/18 Unknown Rx Ibuprofen [Motrin 800 MG tab] 800 mg PO Q8HR PRN #10 tablet 10/09/18 Unknown Rx levoFLOXacin [Levaquin] 750 mg PO QDAY #10 tablet 10/09/18 Unknown Rx traMADoL [Ultram] 50 mg PO Q6HR PRN #10 tablet 10/09/18 Unknown Rx Dicyclomine [Bentyl] 10 mg PO QID PRN #20 capsule 11/06/18 Unknown Rx Metoclopramide [Reglan] 10 mg PO Q6HR PRN #20 tab 11/06/18 Unknown Rx Ondansetron [Zofran Odt] 4 mg PO Q8HR PRN #14 tab.rapdis 01/21/19 Unknown Rx traMADoL [Ultram 50 MG tab] 50 mg PO Q4HR PRN #14 tablet 01/21/19 Unknown Rx Ibuprofen [Motrin 600 MG tab] 600 mg PO Q8H PRN #30 tablet 02/03/19 Unknown Rx ED Physical Exam - General Limitations: No Limitations General appearance: alert, in no apparent distress - Head Head exam: Present: atraumatic, normocephalic - Eye Eye exam: Present: normal appearance - ENT ENT exam: Present: mucous membranes moist - Extremities Exam Extremities exam: Present: tenderness, pedal edema - Back Exam Back exam: Present: full ROM - Neurological Exam Neurological exam: Present: alert, oriented X3, normal gait - Psychiatric Psychiatric exam: Present: normal affect, normal mood - Skin Skin exam: Present: warm, dry, intact, normal color. Absent: rash ED Course Vital Signs 02/03/19 02:04 Respiratory 18 Rate ED Medical Decision Making - Medical Decision Making 53-year-old -[place] male presents to the emergency room for chronic pain and swelling to both legs. Patient states when they get cold and he is walking makes it worse. Patient is taking nothing for pain. Patient reports he tried gabapentin because he has neuropathy which he reports has not helped. Patient has a past medical history diabetes hypertension neuropathy asthma cardiomegaly. His primary care doctor is Dr. Galloway at [place]. She was recently seen here this month for the same complaint and was given prescription for t ramadol. Critical care attestation.: If time is entered above; I have spent that time in minutes in the direct care of this critically ill patient, excluding procedure time. ED Disposition Clinical Impression: Chronic radicular pain of lower extremity Disposition: DC-01 TO HOME OR SELFCARE Is pt being admited?: No Does the pt Need Aspirin: No Condition: Stable Instructions: Chronic Pain (ED), Peripheral Neuropathy (ED) Prescriptions: Ibuprofen [Motrin 600 MG tab] 600 mg PO Q8H PRN #30 tablet PRN Reason: Pain Referrals: EVA GALLOWAY NP [Primary Care Provider] - 3-5 Days PAIN SPECIALIST [facility] [Provider Group] - 3-5 Days [facility], [facility] [Provider Group] - 3-5 Days
[2019-02-03 03:05] VITALS: BP 140/89
== END 2019-02-03 02:35 | disposition home or self-care (01) ==
LOC: ED 23:11
DX: M79.661 Pain in right lower leg (principal); M79.662 Pain in left lower leg; G89.29 Other chronic pain; I10 Essential (primary) hypertension; E11.40 Type 2 diabetes mellitus with diabetic neuropathy, unspecified; J45.909 Unspecified asthma, uncomplicated; F17.200 Nicotine dependence, unspecified, uncomplicated; F12.10 Cannabis abuse, uncomplicated; Z79.1 Long term (current) use of non-steroidal anti-inflammatories (NSAID); Z79.899 Other long term (current) drug therapy; Z88.2 Allergy status to sulfonamides
CPT/HCPCS: 96372; 99283; J1885

== ENCOUNTER 2019-02-09 09:56 | Emergency (ER) | payer MEDICARE ==
[2019-02-09] MEDS ORDERED: oxyCODONE /ACETAMINOPHEN 5-325MG TAB PO ONE (10:13)
[2019-02-09] MEDS ORDERED: oxyCODONE /ACETAMINOPHEN 5-325MG TAB ONE (10:14)
--- NOTE | 2019-02-09 11:35 | Ultrasound Report ---
ULTRASOUND SCROTUM INDICATION: Right testicular pain. Scrotal swelling. COMPARISON Scrotal ultrasound from 10/08/2018. FINDINGS: RIGHT TESTICLE: Measures 3.7 x 2.3 x 2.9 cm with generalized increased vascularity. No distinct mass or other significant abnormality is identified. RIGHT EPIDIDYMIS: Enlarged and edematous with increased vascularity. LEFT TESTICLE: Measures 3.8 x 1.9 x 2.4 cm with expected color flow and appearance. LEFT EPIDIDYMIS: No significant abnormality. HYDROCELE: There is a moderate right hydrocele. VARICOCELE: A varicocele is seen on the left. ADDITIONAL FINDINGS: None. IMPRESSION: 1. Acute right epididymoorchitis. 2. Moderate right hydrocele. 3. Left varicocele. Signer Name: Jaime Schofield MD Signed: 02/09/2019 11:31 AM Workstation Name: [id number]
[2019-02-09 11:49] VITALS: BP 130/83
[2019-02-09] MEDS ORDERED: KETOROLAC 30 MG/1 ML INJ IM ONE (11:49)
--- NOTE | 2019-02-09 11:52 | Emergency Department Report ---
ED Male HPI - General Chief complaint: Urogenital-Male Stated complaint: TESTICULAR PAIN RIGHT SIDE PAIN Time Seen by Provider: 02/09/19 11:47 Source: patient Mode of arrival: Ambulatory Limitations: No Limitations - History of Present Illness Initial comments: 53-year-old -[place] male presents to the emergency room complaining of testicular pain and swelling to the right testicle 3 days. Patient reports he was seen at another hospital yesterday for the same condition. Patient reports that he was discharged home on clindamycin and ibuprofen. Patient reports he did not take the ibuprofen as he feels it does not help with this pain. Patient reports that yesterday he was given a Toradol injection of 30 mg IM which she reports that helped. Patient also was given a [place] for pain by mouth today while in triage. Patient is followed by Dr. Melani Weinstein MD Complaint: testicle pain, testicle swelling Onset/Timin -: days(s) Location: right testicle Severity scale (0 -10): 10 Quality: aching Consistency: constant Improves with: medication - Related Data Previous Rx's Medication Instructions Recorded Last Taken Type traMADoL [Ultram 50 MG tab] 50 mg PO Q6H PRN #10 tablet 07/27/18 Unknown Rx Ibuprofen [Motrin 800 MG tab] 800 mg PO Q8HR PRN #10 tablet 10/09/18 Unknown Rx levoFLOXacin [Levaquin] 750 mg PO QDAY #10 tablet 10/09/18 Unknown Rx traMADoL [Ultram] 50 mg PO Q6HR PRN #10 tablet 10/09/18 Unknown Rx Dicyclomine [Bentyl] 10 mg PO QID PRN #20 capsule 11/06/18 Unknown Rx Metoclopramide [Reglan] 10 mg PO Q6HR PRN #20 tab 11/06/18 Unknown Rx Ondansetron [Zofran Odt] 4 mg PO Q8HR PRN #14 tab.rapdis 01/21/19 Unknown Rx traMADoL [Ultram 50 MG tab] 50 mg PO Q4HR PRN #14 tablet 01/21/19 Unknown Rx Ibuprofen [Motrin 600 MG tab] 600 mg PO Q8H PRN #30 tablet 02/03/19 Unknown Rx Allergies Allergy/AdvReac Type Severity Reaction Status Date / Time sulfamethoxazole Allergy Itching Verified 02/02/19 23:13 [From Bactrim] trimethoprim [From Bactrim] Allergy Itching Verified 02/02/19 23:13 ED Review of Systems ROS: Stated complaint: TESTICULAR PAIN RIGHT SIDE PAIN Other details as noted in HPI Comment: All other systems reviewed and negative ED Past Medical Hx - Past Medical History Hx Hypertension: Yes Hx Diabetes: Yes Hx Asthma: Yes Additional medical history: neuropathy, enlarge heart - Surgical History Additional Surgical History: Benign brain tumor removal - Social History Smoking Status: Current Every Day Smoker Substance Use Type: None - Medications Home Medications: Home Medications Medication Instructions Recorded Confirmed Last Taken Type traMADoL [Ultram 50 MG tab] 50 mg PO Q6H PRN #10 tablet 07/27/18 Unknown Rx Ibuprofen [Motrin 800 MG tab] 800 mg PO Q8HR PRN #10 tablet 10/09/18 Unknown Rx levoFLOXacin [Levaquin] 750 mg PO QDAY #10 tablet 10/09/18 Unknown Rx traMADoL [Ultram] 50 mg PO Q6HR PRN #10 tablet 10/09/18 Unknown Rx Dicyclomine [Bentyl] 10 mg PO QID PRN #20 capsule 11/06/18 Unknown Rx Metoclopramide [Reglan] 10 mg PO Q6HR PRN #20 tab 11/06/18 Unknown Rx Ondansetron [Zofran Odt] 4 mg PO Q8HR PRN #14 tab.rapdis 01/21/19 Unknown Rx traMADoL [Ultram 50 MG tab] 50 mg PO Q4HR PRN #14 tablet 01/21/19 Unknown Rx Ibuprofen [Motrin 600 MG tab] 600 mg PO Q8H PRN #30 tablet 02/03/19 Unknown Rx ED Physical Exam - General Limitations: No Limitations General appearance: alert, in no apparent distress - Head Head exam: Present: atraumatic, normocephalic - Eye Eye exam: Present: normal appearance - ENT ENT exam: Present: mucous membranes moist - Neurological Exam Neurological exam: Present: alert, oriented X3 - Psychiatric Psychiatric exam: Present: normal affect, normal mood - Skin Skin exam: Present: warm, dry, intact, normal color. Absent: rash ED Medical Decision Making - Medical Decision Making 53-year-old -[place] male presents to the emergency room complaining of testicular pain and swelling to the right testicle 3 days. Patient reports he was seen at another hospital yesterday for the same condition. Patient reports that he was discharged home on clindamycin and ibuprofen. Patient reports he did not take the ibuprofen as he feels it does not help with this pain. Patient reports that yesterday he was given a Toradol injection of 30 mg IM which she reports that helped. Patient also was given a [place] for pain by mouth today while in triage. Patient is followed by Dr. Melani Cole. Patient was given a prescription for tramadol on 02/07/2019 as well as 2018. Patient appears to have chronic pain as he has multiple prescriptions for narcotics. Patient is to complete his clindamycin as prescribed follow up with urology as he was referred to an intake ibuprofen. Critical care attestation.: If time is entered above; I have spent that time in minutes in the direct care of this critically ill patient, excluding procedure time. ED Disposition Clinical Impression: Epididymitis, right Disposition: DC-01 TO HOME OR SELFCARE Is pt being admited?: No Does the pt Need Aspirin: No Condition: Stable Instructions: Epididymitis (ED) Additional Instructions: Continue with the clindamycin antibiotics ibuprofen as needed for pain management and to follow up with urologist in your primary care provider Referrals: CB LEE MD [Staff Physician] - 3-5 Days Forms: STI Treatment and Prevention
== END 2019-02-09 12:36 | disposition home or self-care (01) ==
LOC: ED 09:56
DX: N45.1 Epididymitis (principal); I10 Essential (primary) hypertension; J45.909 Unspecified asthma, uncomplicated; E11.40 Type 2 diabetes mellitus with diabetic neuropathy, unspecified; F17.200 Nicotine dependence, unspecified, uncomplicated; Z88.2 Allergy status to sulfonamides; Z88.5 Allergy status to narcotic agent; Z79.1 Long term (current) use of non-steroidal anti-inflammatories (NSAID)
CPT/HCPCS: 93975; 96372; 99284; J1885

== ENCOUNTER 2019-06-16 07:42 | Emergency (ER) | payer MEDICARE ==
[2019-06-16 07:58] VITALS: BP 162/102
[2019-06-16] MEDS ORDERED: HYDROcodone/ACETAMINOPHEN 5-325 MG TAB PO ONE (11:35)
--- NOTE | 2019-06-16 11:52 | Emergency Department Report ---
ED General Adult HPI - General Chief complaint: Extremity Injury, Lower Stated complaint: BILATERAL ANKLE SWELLING Time Seen by Provider: 06/16/19 11:12 Source: patient, EMS Mode of arrival: Ambulatory Limitations: No Limitations - History of Present Illness Initial comments: Patient is a 54-year-old male presents emergency room with complaints of ankle and feet pain and swelling that began 2 days ago. He states he has has had this intermittently over the last year. He states the swelling will come and go down. He states that he saw his primary care doctor Dr. Hines at [facility] who diagnosed him with neuropathy. He states that he has been prescribed gabapentin but does not take it like he supposed to because it causes stomach upset. Patient states that he also has an abscess in the rectal region that began a couple of days ago. He denies any drainage. He denies any fever, chills, vomiting. He has a past medical history of DM, neuropathy, asthma, hypertension. He states he did not take his blood pressure medication today. He has an allergy to Bactrim. - Related Data Previous Rx's Medication Instructions Recorded Last Taken Type traMADoL [Ultram 50 MG tab] 50 mg PO Q6H PRN #10 tablet 07/27/18 Unknown Rx Ibuprofen [Motrin 800 MG tab] 800 mg PO Q8HR PRN #10 tablet 10/09/18 Unknown Rx levoFLOXacin [Levaquin] 750 mg PO QDAY #10 tablet 10/09/18 Unknown Rx traMADoL [Ultram] 50 mg PO Q6HR PRN #10 tablet 10/09/18 Unknown Rx Dicyclomine [Bentyl] 10 mg PO QID PRN #20 capsule 11/06/18 Unknown Rx Metoclopramide [Reglan] 10 mg PO Q6HR PRN #20 tab 11/06/18 Unknown Rx Ondansetron [Zofran Odt] 4 mg PO Q8HR PRN #14 tab.rapdis 01/21/19 Unknown Rx traMADoL [Ultram 50 MG tab] 50 mg PO Q4HR PRN #14 tablet 01/21/19 Unknown Rx Ibuprofen [Motrin 600 MG tab] 600 mg PO Q8H PRN #30 tablet 02/03/19 Unknown Rx Azithromycin [Zithromax TAB] 1,000 mg PO ONCE #2 tablet 03/16/19 Unknown Rx Cefixime [Suprax] 400 mg PO ONCE #1 capsule 03/16/19 Unknown Rx Ketorolac [Toradol] 10 mg PO Q6H PRN #14 tablet 03/16/19 Unknown Rx metroNIDAZOLE [Flagyl] 2,000 mg PO ONCE #4 tablet 03/16/19 Unknown Rx Doxycycline Hyclate [Doxycycline 100 mg PO BID 10 Days #20 tab 06/16/19 Unknown Rx Hyclate TAB] traMADoL [Ultram 50 MG tab] 50 mg PO Q8HR PRN #7 tablet 06/16/19 Unknown Rx Allergies Allergy/AdvReac Type Severity Reaction Status Date / Time sulfamethoxazole Allergy Itching Verified 02/02/19 23:13 [From Bactrim] trimethoprim [From Bactrim] Allergy Itching Verified 02/02/19 23:13 ED Review of Systems ROS: Stated complaint: BILATERAL ANKLE SWELLING Other details as noted in HPI Comment: All other systems reviewed and negative ED Past Medical Hx - Past Medical History Previous Medical History?: Yes Hx Hypertension: Yes Hx Diabetes: Yes Hx Asthma: Yes Additional medical history: neuropathy, enlarge heart - Surgical History Past Surgical History?: Yes Additional Surgical History: Benign brain tumor removal - Social History Smoking Status: Never Smoker Substance Use Type: None - Medications Home Medications: Home Medications Medication Instructions Recorded Confirmed Last Taken Type traMADoL [Ultram 50 MG tab] 50 mg PO Q6H PRN #10 tablet 07/27/18 Unknown Rx Ibuprofen [Motrin 800 MG tab] 800 mg PO Q8HR PRN #10 tablet 10/09/18 Unknown Rx levoFLOXacin [Levaquin] 750 mg PO QDAY #10 tablet 10/09/18 Unknown Rx traMADoL [Ultram] 50 mg PO Q6HR PRN #10 tablet 10/09/18 Unknown Rx Dicyclomine [Bentyl] 10 mg PO QID PRN #20 capsule 11/06/18 Unknown Rx Metoclopramide [Reglan] 10 mg PO Q6HR PRN #20 tab 11/06/18 Unknown Rx Ondansetron [Zofran Odt] 4 mg PO Q8HR PRN #14 tab.rapdis 01/21/19 Unknown Rx traMADoL [Ultram 50 MG tab] 50 mg PO Q4HR PRN #14 tablet 01/21/19 Unknown Rx Ibuprofen [Motrin 600 MG tab] 600 mg PO Q8H PRN #30 tablet 02/03/19 Unknown Rx Azithromycin [Zithromax TAB] 1,000 mg PO ONCE #2 tablet 03/16/19 Unknown Rx Cefixime [Suprax] 400 mg PO ONCE #1 capsule 03/16/19 Unknown Rx Ketorolac [Toradol] 10 mg PO Q6H PRN #14 tablet 03/16/19 Unknown Rx metroNIDAZOLE [Flagyl] 2,000 mg PO ONCE #4 tablet 03/16/19 Unknown Rx Doxycycline Hyclate [Doxycycline 100 mg PO BID 10 Days #20 tab 06/16/19 Unknown Rx Hyclate TAB] traMADoL [Ultram 50 MG tab] 50 mg PO Q8HR PRN #7 tablet 06/16/19 Unknown Rx ED Physical Exam - General Limitations: No Limitations General appearance: alert, in no apparent distress - Head Head exam: Present: atraumatic, normocephalic - Eye Eye exam: Present: normal appearance - ENT ENT exam: Present: mucous membranes moist - Respiratory Respiratory exam: Present: normal lung sounds bilaterally. Absent: respiratory distress, wheezes, rales, rhonchi, stridor, chest wall tenderness, accessory muscle use, decreased breath sounds, prolonged expiratory - Cardiovascular Cardiovascular Exam: Present: regular rate, normal rhythm, normal heart sounds. Absent: systolic murmur, diastolic murmur, rubs, gallop - Rectal Rectal exam: Present: other (0.5 cm area of induration on the ouside of the rectum at the 3 oclock position, no surrouding erythema, no necrosis, no drainage present, lining printer: ELIANE Hines) - Extremities Exam Extremities exam: Present: other (small amount of edema present to the bilateral ankles and feet, there is no erythema, no increased warmth, FROM of the BLE, neurovascularly intact, there are some varicose veins present on the legs) - Neurological Exam Neurological exam: Present: alert, oriented X3 - Psychiatric Psychiatric exam: Present: normal affect, normal mood - Skin Skin exam: Present: warm, dry ED Course Vital Signs 06/16/19 06/16/19 07:55 11:51 Temperature 97.5 F L Pulse Rate 85 Respiratory 16 20 Rate Blood Pressure 162/102 O2 Sat by Pulse 100 Oximetry ED Medical Decision Making - Medical Decision Making Patient is a 54-year-old male presents emergency room with complaints of ankle and feet pain and swelling that began 2 days ago. He states he has has had this intermittently over the last year. He states the swelling will come and go down. He states that he saw his primary care doctor Dr. Hines at [facility] who diagnosed him with neuropathy. He states that he has been prescribed gabapentin but does not take it like he supposed to because it causes stomach upset. Patient states that he also has an abscess in the rectal region that began a couple of days ago. He denies any drainage. He denies any fever, chills, vomiting. He has a past medical history of DM, neuropathy, asthma, hypertension. He states he did not take his blood pressure medication today. He has an allergy to Bactrim. Vitals with elevated blood pressure secondary to patient not taking his medication, otherwise vitals are normal. on exam: 0.5 cm area of induration on the outside of the rectum at the 3 oclock position, no surrounding erythema, no necrosis, no drainage present, lining printer: ELIANE Hines, small amount of edema present to the bilateral ankles and feet, there is no erythema, no increased warmth, FROM of the BLE, neurovascularly intact, there are some varicose veins present on the legs. Examination consistent with small early abscess, does not need I&D at this time it is very small only 0.5 cm, will place patient on antibiotics. Advised patient to have the area reexamined in 3 days that he may need an I&D in the future if antibiotics do not resolve the area. Leg examination consistent with possible PVD versus arthritis versus neuropathy. pt does not have s/sx of acute heart failure, breath sounds are clear bilaterally, pt only has swelling present in ankle/feet. Patient has no clinical signs symptoms of septic joint, gout, pseudogout, DVT, no ulcerations. Discussed with patient that he needed to follow-up with a vascular surgeon and PCP. Patient's pain treated while in the emergency department as he did not drive and improved. Patient given prescription for doxycycline and short course of tramadol. advised pt Please take medication as prescribed. Do not drive or operate heavy machinery while taking pain medication. Please follow-up with a primary care doctor in the next 3 days for reexamination of the abscess. Please follow-up with a vascular surgeon regarding the swelling in your ankles/feet. Please discuss your neuropathy medication with your primary care doctor. Return to the emergency room immediately for any new or worsening symptoms or any worsening signs of infection. please take your blood pressure medication as prescribed by your primary care doctor, keep a blood pressure log, and eat a low sodium diet. may elevate the legs and wear compression stockings when you are on your feet. Critical care attestation.: If time is entered above; I have spent that time in minutes in the direct care of this critically ill patient, excluding procedure time. ED Disposition Clinical Impression: Bilateral swelling of feet and ankles, Abscess Pain in joint, ankle and foot Qualifiers: Laterality: unspecified laterality Qualified Code(s): M25.579 - Pain in unspecified ankle and joints of unspecified foot Disposition: - TO HOME OR SELFCARE Is pt being admited?: No Does the pt Need Aspirin: No Condition: Stable Instructions: Peripheral Vascular Disorders (ED), Diabetic Neuropathy (ED), Abscess (ED) Additional Instructions: Please take medication as prescribed. Do not drive or operate heavy machinery while taking pain medication. Please follow-up with a primary care doctor in the next 3 days for reexamination of the abscess. Please follow-up with a vascular surgeon regarding the swelling in your ankles/feet. Please discuss your neuropathy medication with your primary care doctor. Return to the emergency room immediately for any new or worsening symptoms or any worsening signs of infection. please take your blood pressure medication as prescribed by your primary care doctor, keep a blood pressure log, and eat a low sodium diet. may elevate the legs and wear compression stockings when you are on your feet. Prescriptions: Doxycycline Hyclate [Doxycycline Hyclate TAB] 100 mg PO BID 10 Days #20 tab traMADoL [Ultram 50 MG tab] 50 mg PO Q8HR PRN #7 tablet PRN Reason: Pain , Severe (7-10) Referrals: EVA GALLOWAY NP [Primary Care Provider] - 2-3 Days [facility] [Provider Group] - 2-3 Days TONY COE MD [Staff Physician] - 2-3 Days [facility] [Provider Group] - 2-3 Days [facility] [Outside] - 2-3 Days [facility] [Outside] - 2-3 Days Time of Disposition: 11:52 Print Language: ARMENIAN
== END 2019-06-16 12:39 | disposition home or self-care (01) ==
LOC: ED 07:42
DX: K61.1 Rectal abscess (principal); I10 Essential (primary) hypertension; E11.9 Type 2 diabetes mellitus without complications; J45.909 Unspecified asthma, uncomplicated; E11.40 Type 2 diabetes mellitus with diabetic neuropathy, unspecified; Z79.899 Other long term (current) drug therapy; M25.571 Pain in right ankle and joints of right foot; M25.572 Pain in left ankle and joints of left foot; R22.43 Localized swelling, mass and lump, lower limb, bilateral

== ENCOUNTER 2019-07-11 09:54 | Emergency (ER) | payer MEDICARE ==
[2019-07-11] MEDS ORDERED: SODIUM CHLORIDE 0.9% 1000 ML 1,000 ML IV ONE (10:26)
[2019-07-11] MEDS ORDERED: ONDANSETRON 4 MG/2 ML INJ IV ONE (10:26)
[2019-07-11] MEDS ORDERED: fentaNYL 100 MCG/2 ML INJ IV ONE (10:26)
--- NOTE | 2019-07-11 10:33 | Emergency Department Report ---
HPI - General Chief Complaint: Hyperglycemia Time Seen by Provider: 07/11/19 10:17 - HPI HPI: Room 26 The patient is a 54-year-old male present with a chief complaint of bilateral foot pain. The patient states 1 week ago he noticed "lund" to his left foot and is uncertain if he accidentally burned himself while cooking with grease. Patient states he does not recall a specific injury. The patient states he is noticed blistering to the toes of his left foot for the past week. Yesterday the patient developed nausea and vomiting without diarrhea and right ankle pain. Patient states he then developed diffuse body aches. Patient denies fever. Patient states has been compliant with all of his diabetic medication. Patient denies any other forms of trauma. Patient gives his pain a score of 10/10 ED Past Medical Hx - Past Medical History Previous Medical History?: Yes Hx Hypertension: Yes Hx Diabetes: Yes Hx Asthma: Yes Additional medical history: neuropathy, enlarge heart - Surgical History Additional Surgical History: Benign brain tumor removal - Family History Family history: no significant - Social History Smoking Status: Current Every Day Smoker (Cigars) Substance Use Type: Marijuana - Medications Home Medications: Home Medications Medication Instructions Recorded Confirmed Last Taken Type Bacitracin Zinc Oint [Antibiotic 1 applicatio TP BID #1 tube 07/11/19 Unknown Rx Oint] Ibuprofen [Motrin 800 MG tab] 800 mg PO Q8HR PRN #20 tablet 07/11/19 Unknown Rx traMADoL [Ultram] 50 mg PO Q6HR PRN #14 tablet 07/11/19 Unknown Rx ED Review of Systems ROS: Stated complaint: DIABETIC FOOT ULCER Other details as noted in HPI Constitutional: denies: fever Eyes: denies: eye pain ENT: denies: throat pain Respiratory: no symptoms reported Cardiovascular: denies: chest pain Endocrine: no symptoms reported Gastrointestinal: abdominal pain, nausea, vomiting. denies: diarrhea Genitourinary: denies: dysuria Musculoskeletal: arthralgia Neurological: denies: headache Physical Exam - Physical Exam Vital Signs: Vital Signs 07/11/19 10:10 Temperature 98 F Pulse Rate 84 Respiratory 16 Rate Blood Pressure 154/91 O2 Sat by Pulse 96 Oximetry Physical Exam: GENERAL: The patient is well-developed well-nourished male lying on stretcher appearing to be in mild discomfort. [] HEENT: Normocephalic. Atraumatic. Extraocular motions are intact. Patient has moist mucous membranes. NECK: Supple. Trachea midline CHEST/LUNGS: Clear to auscultation. There is no respiratory distress noted. HEART/CARDIOVASCULAR: Regular. There is no tachycardia. There is no gallop rub or murmur. ABDOMEN: Abdomen is soft, nontender. Patient has normal bowel sounds. There is no abdominal distention. SKIN: There small ulcerations to the left great toe. No active drainage visualized. There is no edema. There is no diaphoresis. NEURO: The patient is awake, alert, and oriented. The patient is cooperative. The patient has no focal neurologic deficits. The patient has normal speech MUSCULOSKELETAL: There is tenderness to the right ankle lateral malleoli. There is no limitation range of motion. ED Course Vital Signs 07/11/19 10:10 Temperature 98 F Pulse Rate 84 Respiratory 16 Rate Blood Pressure 154/91 O2 Sat by Pulse 96 Oximetry ED Medical Decision Making - Lab Data Result diagrams: 07/11/19 10:34 07/11/19 10:34 Laboratory Tests 07/11/19 07/11/19 07/11/19 10:16 10:34 10:34 WBC 5.8 RBC 4.78 Hgb 12.5 Hct 38.7 MCV 81 L MCH 26 L MCHC 32 RDW 15.1 Plt Count 194 Lymph % (Auto) 24.6 Calvert % (Auto) 6.9 Eos % (Auto) 1.6 Baso % (Auto) 0.6 Lymph # 1.4 Calvert # 0.4 Eos # 0.1 Baso # 0.0 Seg Neutrophils % 66.3 Seg Neutrophils # 3.8 ESR 40 VBG pH Sodium 131 L Potassium 4.7 Chloride 97.5 L Carbon Dioxide 22 Anion Gap 16 BUN 22 H Creatinine 1.1 Estimated GFR > 60 BUN/Creatinine Ratio 20 Glucose 469 H POC Glucose 403 H Lactic Acid Calcium 9.1 Total Bilirubin < 0.20 AST 15 ALT 21 Alkaline Phosphatase 188 H C-Reactive Protein Total Protein 7.1 Albumin 3.5 L Albumin/Globulin Ratio 1.0 07/11/19 07/11/19 07/11/19 10:34 10:34 10:34 WBC RBC Hgb Hct MCV MCH MCHC RDW Plt Count Lymph % (Auto) Calvert % (Auto) Eos % (Auto) Baso % (Auto) Lymph # Calvert # Eos # Baso # Seg Neutrophils % Seg Neutrophils # ESR VBG pH 7.322 Sodium Potassium Chloride Carbon Dioxide Anion Gap BUN Creatinine Estimated GFR BUN/Creatinine Ratio Glucose POC Glucose Lactic Acid 0.70 Calcium Total Bilirubin AST ALT Alkaline Phosphatase C-Reactive Protein 0.10 Total Protein Albumin Albumin/Globulin Ratio 07/11/19 07/11/19 12:04 12:38 WBC RBC Hgb Hct MCV MCH MCHC RDW Plt Count Lymph % (Auto) Calvert % (Auto) Eos % (Auto) Baso % (Auto) Lymph # Calvert # Eos # Baso # Seg Neutrophils % Seg Neutrophils # ESR VBG pH Sodium Potassium Chloride Carbon Dioxide Anion Gap BUN Creatinine Estimated GFR BUN/Creatinine Ratio Glucose POC Glucose 440 H 287 H Lactic Acid Calcium Total Bilirubin AST ALT Alkaline Phosphatase C-Reactive Protein Total Protein Albumin Albumin/Globulin Ratio - EKG Data -: EKG Interpreted by Me EKG shows normal: sinus rhythm Rate: normal - EKG Data When compared to previous EKG there are: previous EKG unavailable Interpretation: other (No ischemic changes seen) - Radiology Data Radiology results: report reviewed (Left foot x-ray, right ankle x-ray), image reviewed (Left foot x-ray, right ankle x-ray) interpreted by me: Left foot x-ray-no foreign bodies. No evidence of osteomyelitis Right ankle x-ray-no acute fracture Findings [facility] [address] [place] [address] XRay Report Signed Patient: EDUARDO RUSSELL MR#: [id number] : 1965 Acct:[id number] Age/Sex: 54 / M ADM Date: 07/11/19 Loc: ED Attending Dr: Ordering Physician: DANNY FLORES MD Date of Service: 07/11/19 Procedure(s): XR foot 3+V LT Accession Number(s): [id number] cc: DANNY FLORES MD Fluoro Time In Minutes: LEFT FOOT 3 VIEWS INDICATION / CLINICAL INFORMATION: Left foot pain, ulcerations. COMPARISON: None available. FINDINGS: BONES and JOINT(S): No acute fracture or subluxation. No significant arthritis. No suspici ous destructive bony changes are seen. SOFT TISSUES: Mild edema is seen throughout the first toe with ulcerations noted along the tip and medial aspect of the first toe measuring 8 mm and 1 cm, respectively. Mild to moderate atherosclerosis is seen along the distal leg/ankle. ADDITIONAL FINDINGS: None. IMPRESSION: Left first toe ulcerations as above without radiographic evidence of osteomyelitis. Signer Name: Jaime Schofield MD Signed: 07/11/2019 11:15 AM Workstation Name: [id number] Transcribed By: YOANNA Dictated By: Jaime Schofield MD Electronically Authenticated By: Jaime Schofield MD Signed Date/Time: 07/11/191114 DD/ 13 TD/TT: Findings [facility] [address] [place] [address] XRay Report Signed Patient: EDUARDO RUSSELL MR#: [id number] : 1965 Acct:[id number] Age/Sex: 54 / M ADM Date: 07/11/19 Loc: ED Attending Dr: Ordering Physician: DANNY FLORES MD Date of Service: 07/11/19 Procedure(s): XR ankle 3+V RT Accession Number(s): [id number] cc: DANNY FLORES MD Fluoro Time In Minutes: RIGHT ANKLE 3 VIEWS INDICATION / CLINICAL INFORMATION: Lateral right ankle pain along lateral malleolus. COMPARISON: None available. FINDINGS: BONES and JOINT(S): No acute fracture or subluxation. No significant arthritis. SOFT TISSUES: No acute abnormality. Mild to moderate atherosclerosis is seen anteriorly along the ankle. ADDITIONAL FINDINGS: None. IMPRESSION: 1. No acute findings. Signer Name: Jaime Schofield MD Signed: 07/11/2019 11:13 AM Workstation Name: [id number] Transcribed By: YOANNA Dictated By: Jaime Schofield MD Electronically Authenticated By: Jaime Schofield MD Signed Date/Time: 07/11/191112 DD/ 12 TD/TT: - Differential Diagnosis Foot ulcerations, neuropathy, DKA, hyperglycemia Critical care attestation.: If time is entered above; I have spent that time in minutes in the direct care of this critically ill patient, excluding procedure time. ED Disposition Clinical Impression: Foot ulcer, left, Right ankle pain, Peripheral neuropathy, Hyperglycemia Disposition: - TO HOME OR SELFCARE Is pt being admited?: No Does the pt Need Aspirin: No Condition: Stable Additional Instructions: Return to the emergency department should you develop worsening symptoms, inability to tolerate food or liquids, high fever or any other concerns Prescriptions: Bacitracin Zinc Oint [Antibiotic Oint] 1 applicatio TP BID #1 tube Ibuprofen [Motrin 800 MG tab] 800 mg PO Q8HR PRN #20 tablet PRN Reason: Pain, Moderate (4-6) traMADoL [Ultram] 50 mg PO Q6HR PRN #14 tablet PRN Reason: Pain Referrals: AYLA PACK [Other] - 3-5 Days [facility] [Outside] - 3-5 Days Time of Disposition: 12:36
--- NOTE | 2019-07-11 11:18 | XRay Report ---
RIGHT ANKLE 3 VIEWS INDICATION / CLINICAL INFORMATION: Lateral right ankle pain along lateral malleolus. COMPARISON: None available. FINDINGS: BONES and JOINT(S): No acute fracture or subluxation. No significant arthritis. SOFT TISSUES: No acute abnormality. Mild to moderate atherosclerosis is seen anteriorly along the ank le. ADDITIONAL FINDINGS: None. IMPRESSION: 1. No acute findings. Signer Name: Jaime Schofield MD Signed: 07/11/2019 11:13 AM Workstation Name: [id number]
--- NOTE | 2019-07-11 11:20 | XRay Report ---
LEFT FOOT 3 VIEWS INDICATION / CLINICAL INFORMATION: Left foot pain, ulcerations. COMPARISON: None available. FINDINGS: BONES and JOINT(S): No acute fracture or subluxation. No significant arthritis. No suspicious destruc tive bony changes are seen. SOFT TISSUES: Mild edema is seen throughout the first toe with ulcerations noted along the tip and me dial aspect of the first toe measuring 8 mm and 1 cm, respectively. Mild to moderate atherosclerosis is seen along the distal leg/ankle. ADDITIONAL FINDINGS: None. IMPRESSION: Left first toe ulcerations as above without radiographic evidence of osteomyelitis. Signer Name: Jaime Schofield MD Signed: 07/11/2019 11:15 AM Workstation Name: [id number]
[2019-07-11 11:21] LABS: Basophils % (Auto) 0.6 % (0.0-1.8); Eosinophils # (Auto) 0.1 K/mm3 (0.0-0.4); Eosinophils % (Auto) 1.6 % (0.0-4.3); Hematocrit 38.7 % (35.5-45.6); Hemoglobin 12.5 gm/dl (11.8-15.2); Lymphocytes # (Auto) 1.4 K/mm3 (1.2-5.4); Lymphocytes % (Auto) 24.6 % (13.4-35.0); Mean Corpuscular HGB Conc 32 % (32-34); Mean Corpuscular Volume 81 fl (84-94); Monocytes # (Auto) 0.4 K/mm3 (0.0-0.8); Monocytes % (Auto) 6.9 % (0.0-7.3); Platelet Count 194 K/mm3 (140-440); Red Blood Count 4.78 M/mm3 (3.65-5.03); Red Cell Distribution Width 15.1 % (13.2-15.2)
[2019-07-11 11:39] LABS: Alanine Aminotransferase 21 units/L (7-56); Albumin 3.5 g/dL (3.9-5); BUN/Creatinine Ratio 20; Blood Urea Nitrogen 22 mg/dL (9-20); Calcium 9.1 mg/dL (8.4-10.2); Hemolysis Index 2
[2019-07-11 11:40] LABS: Erythrocyte Sedimentation Rate 40 mm/Hr (0-20)
[2019-07-11] MEDS ORDERED: INSULIN REGULAR, HUMAN 100 UNITS/1 ML IV ONE (11:52)
[2019-07-11 12:28] VITALS: BP 147/77
[2019-07-11 12:35] LABS: Bilirubin,Urine NEG (Negative); Blood,Urine SM (Negative); Color,Urine Straw (Yellow); Hyaline Casts,Urine 2 /LPF; Protein,Urine <15 mg/dL mg/dL (Negative); Urobilinogen,Urine < 2.0 mg/dL (<2.0); WBC,Urine < 1.0 /HPF (0.0-6.0)
[2019-07-11] MEDS ORDERED: BACITRACIN ZINC OINT 28.4 GM TP PRN (12:54)
== END 2019-07-11 13:25 | disposition home or self-care (01) ==
LOC: ED 09:54
DX: E11.65 Type 2 diabetes mellitus with hyperglycemia (principal); E11.42 Type 2 diabetes mellitus with diabetic polyneuropathy; E11.621 Type 2 diabetes mellitus with foot ulcer; M25.571 Pain in right ankle and joints of right foot; I10 Essential (primary) hypertension; J45.909 Unspecified asthma, uncomplicated; F17.200 Nicotine dependence, unspecified, uncomplicated; F12.90 Cannabis use, unspecified, uncomplicated; Z79.899 Other long term (current) drug therapy; Z98.890 Other specified postprocedural states; Z88.2 Allergy status to sulfonamides; Z88.8 Allergy status to other drugs, medicaments and biological substances
CPT/HCPCS: 36415; 73610; 73630; 80053; 81001; 82140; 82805; 82962; 85025; 85652; 86140; 87040; 93005; 96361; 96374; 96375; 99284; J2405; J3010; J1815

== ENCOUNTER 2019-10-09 04:59 | Emergency (ER) | payer MEDICARE ==
[2019-10-09 05:11] VITALS: BP 128/76
== END 2019-10-09 17:41 | disposition left against medical advice (07) ==
LOC: ED 04:59
DX: M79.89 Other specified soft tissue disorders (principal); Z53.21 Procedure and treatment not carried out due to patient leaving prior to being seen by health care provider

== ENCOUNTER 2020-02-01 18:17 | Emergency (ER) | payer MEDICARE ==
[2020-02-01 18:29] VITALS: BP 171/90
[2020-02-01] MEDS ORDERED: CLINDAMYCIN 300 MG CAP PO ONE (19:34)
[2020-02-01] MEDS ORDERED: ACETAMINOPHEN 500 MG TAB PO ONE (19:34)
[2020-02-01] MEDS ORDERED: DOXYCYCLINE 100 MG CAP PO ONE (19:35)
--- NOTE | 2020-02-01 20:40 | Emergency Department Report ---
ED General Adult HPI - General Chief complaint: Earache Stated complaint: RIGHT FACIAL/EAR PAIN Source: patient Mode of arrival: Ambulatory Limitations: No Limitations - History of Present Illness Initial comments: Patient is a 54-year-old -[place] male with a history of hypertension, asthma, [id number] diabetes with bilateral peripheral neuropathy who presents to the ED with complaint of acute onset persistent right ear pain with swelling and purulent discharge as well as diffuse maculopapular erythematous painful rashes on the face and the scalp for the last 2 months. Patient states that he has taken various medical antibiotics that were prescribed, the latest of which was amoxicillin, and which he has since completed. Patient states that the purulent discharge and the right ear pain has worsened despite taking these antibiotics. Patient denies dizziness, syncope, fever, chills, hearing loss, nausea and vomiting, diarrhea, chest pain, sore throat, nasal and sinus congestion, abdominal pain, shortness of breath or change in vision. MD Complaint: right ear pain with discharge; painful facial swollen rashes -: Gradual, month(s) (2) Location: face Radiation: non-radiation Severity scale (0 -10): 10 Quality: aching, sharp Consistency: constant Improves with: none Worsens with: none Associated Symptoms: denies other symptoms, rash (painful swollen right facial and scalp rashes). denies: confusion, chest pain, cough, diaphoresis, fever/chills, headaches, malaise, nausea/vomiting - Related Data Previous Rx's Medication Instructions Recorded Last Taken Type Bacitracin Zinc Oint [Antibiotic 1 applicatio TP BID #1 tube 07/11/19 Unknown Rx Oint] Ibuprofen [Motrin 800 MG tab] 800 mg PO Q8HR PRN #20 tablet 07/11/19 Unknown Rx traMADoL [Ultram 50 MG tab] 50 mg PO Q6HR PRN #10 tablet 09/23/19 Unknown Rx Clindamycin [Clindamycin CAP] 300 mg PO Q8H #30 cap 10/05/19 Unknown Rx Insulin NPH/Regular [NovoLIN 70/30] 14 unit SUB-Q BIDDIAB #1 vial 10/05/19 Unknown Rx lisinopriL [Zestril TAB] 10 mg PO QDAY #30 tablet 10/05/19 Unknown Rx oxyCODONE /ACETAMINOPHEN [Percocet 1 tab PO BID PRN #10 tablet 10/05/19 Unknown Rx 5/325 mg] Amoxicillin/Potassium Clav 1 each PO Q12H #20 tablet 02/01/20 Unknown Rx [Augmentin 875-125 Tablet] Ciprofloxacin HCl/Dexameth 1 drop OTIC BID #7.5 ml 02/01/20 Unknown Rx [Ciprodex Otic Suspension] Doxycycline Hyclate 100 mg PO Q12H #20 tablet. 02/01/20 Unknown Rx Ibuprofen [Motrin] 600 mg PO Q8H PRN #30 tablet 02/01/20 Unknown Rx Allergies Allergy/AdvReac Type Severity Reaction Status Date / Time sulfamethoxazole Allergy Itching Verified 02/02/19 23:13 [From Bactrim] trimethoprim [From Bactrim] Allergy Itching Verified 02/02/19 23:13 ED Review of Systems ROS: Stated complaint: RIGHT FACIAL/EAR PAIN Other details as noted in HPI Constitutional: denies: chills, fever Eyes: denies: eye pain, eye discharge, vision change ENT: ear pain (Right ear pain with purulent discharge). denies: throat pain, dental pain, hearing loss Respiratory: denies: cough, shortness of breath, wheezing Cardiovascular: denies: chest pain, palpitations Endocrine: no symptoms reported Gastrointestinal: denies: abdominal pain, nausea, vomiting, diarrhea, constipation, hematemesis Genitourinary: denies: urgency, dysuria Musculoskeletal: denies: back pain, joint swelling, arthralgia Skin: rash (Erythematous maculopapular nonfluctuant painful rashes on the right cheek, chin and diffusely on the scalp), change in color. denies: lesions Neurological: denies: headache, weakness, paresthesias Psychiatric: denies: anxiety, depression Hematological/Lymphatic: denies: easy bleeding, easy bruising ED Past Medical Hx - Past Medical History Hx Hypertension: Yes Hx Diabetes: Yes Hx Asthma: Yes Additional medical history: neuropathy, enlarge heart - Surgical History Additional Surgical History: Benign brain tumor removal. right ear - Social History Smoking Status: Current Every Day Smoker - Medications Home Medications: Home Medications Medication Instructions Recorded Confirmed Last Taken Type Bacitracin Zinc Oint [Antibiotic 1 applicatio TP BID #1 tube 07/11/19 10/03/19 Unknown Rx Oint] Ibuprofen [Motrin 800 MG tab] 800 mg PO Q8HR PRN #20 tablet 07/11/19 10/03/19 Unknown Rx traMADoL [Ultram 50 MG tab] 50 mg PO Q6HR PRN #10 tablet 09/23/19 10/03/19 Unknown Rx Clindamycin [Clindamycin CAP] 300 mg PO Q8H #30 cap 10/05/19 Unknown Rx Insulin NPH/Regular [NovoLIN 70/30] 14 unit SUB-Q BIDDIAB #1 vial 10/05/19 Unknown Rx lisinopriL [Zestril TAB] 10 mg PO QDAY #30 tablet 10/05/19 Unknown Rx oxyCODONE /ACETAMINOPHEN [Percocet 1 tab PO BID PRN #10 tablet 10/05/19 Unknown Rx 5/325 mg] Amoxicillin/Potassium Clav 1 each PO Q12H #20 tablet 02/01/20 Unknown Rx [Augmentin 875-125 Tablet] Ciprofloxacin HCl/Dexameth 1 drop OTIC BID #7.5 ml 02/01/20 Unknown Rx [Ciprodex Otic Suspension] Doxycycline Hyclate 100 mg PO Q12H #20 tablet.dr 02/01/20 Unknown Rx Ibuprofen [Motrin] 600 mg PO Q8H PRN #30 tablet 02/01/20 Unknown Rx ED Physical Exam - General Limitations: No Limitations General appearance: alert, in no apparent distress - Head Head exam: Present: atraumatic, normocephalic, normal inspection - Eye Eye exam: Present: normal appearance, PERRL, EOMI Pupils: Present: normal accommodation - ENT ENT exam: Present: normal orophraynx, mucous membranes moist, other (Swollen, severely tender, bulging right tympanic membrane; swollen tender right external ear canal) - Neck Neck exam: Present: normal inspection, full ROM - Respiratory Respiratory exam: Present: normal lung sounds bilaterally. Absent: respiratory distress, wheezes, rales, rhonchi, chest wall tenderness, accessory muscle use, decreased breath sounds - Cardiovascular Cardiovascular Exam: Present: regular rate, normal rhythm, normal heart sounds. Absent: systolic murmur, diastolic murmur, rubs, gallop - GI/Abdominal GI/Abdominal exam: Present: soft, normal bowel sounds. Absent: distended, tenderness, guarding - Extremities Exam Extremities exam: Present: normal inspection, full ROM, normal capillary refill - Back Exam Back exam: Present: normal inspection, full ROM. Absent: tenderness, CVA tenderness (R), CVA tenderness (L), muscle spasm, paraspinal tenderness, vertebral tenderness - Neurological Exam Neurological exam: Present: alert, oriented X3, CN II-XII intact, normal gait, reflexes normal - Psychiatric Psychiatric exam: Present: normal affect, anxious - Skin Skin exam: Present: warm, dry, intact, rash (Diffuse erythematous maculopapular tender nonfluctuant rashes on the scalp and on the right cheek), erythema ED Course Vital Signs 02/01/20 18:28 Temperature 97.4 F L Pulse Rate 83 Respiratory 20 Rate Blood Pressure 171/90 O2 Sat by Pulse 98 Oximetry ED Medical Decision Making - Medical Decision Making This is a 54-year-old -[place] male with a history of hypertension, asthma, [id number]-hupytohri diabetes with bilateral peripheral neuropathy who presents to the ED with complaint of acute onset persistent right ear pain with swelling and purulent discharge as well as diffuse maculopapular erythematous painful rashes on the face and the scalp for the last 2 months. Patient states that he has taken various medical antibiotics that were prescribed, the latest of which was amoxicillin, and which he has since completed. Patient states that the purulent discharge and the right ear pain has worsened despite taking these antibiotics. In the ED, patient is alert and oriented x3 and is not in distress. Patient was treated for pain in the ED and also given initial oral antibiotics in the ED. On reevaluation, patient's pain is well controlled medication. Patient was discharged home on pain medications and antibiotics and patient was advised to follow-up with his primary care physician in 5 to 7 days for reevaluation. Patient was also advised return to the ED immediately if symptoms get worse. - Differential Diagnosis Acute folliculitis; otitis media; otitis externa; cellulitis; abscess Critical care attestation.: If time is entered above; I have spent that time in minutes in the direct care of this critically ill patient, excluding procedure time. ED Disposition Clinical Impression: Acute folliculitis, Acute suppurative otitis media of right ear, Cellulitis of face Disposition: - TO HOME OR SELFCARE Is pt being admited?: No Does the pt Need Aspirin: No Condition: Stable Instructions: Otitis Media, Adult, [id number], Folliculitis, Otitis Media (ED), Cellulitis, Adult, [id number] Additional Instructions: Take medications with food, drink plenty of fluids and follow-up with your primary care physician in 7 to 10 days for reevaluation. Return to the ED immediately if symptoms get worse. Prescriptions: Amoxicillin/Potassium Clav [Augmentin 875-125 Tablet] 1 each PO Q12H #20 tablet Ciprofloxacin HCl/Dexameth [Ciprodex Otic Suspension] 1 drop OTIC BID #7.5 ml Doxycycline Hyclate 100 mg PO Q12H #20 tablet. Ibuprofen [Motrin] 600 mg PO Q8H PRN #30 tablet PRN Reason: Pain Referrals: [facility] [Provider Group] - 7-10 days Time of Disposition: 20:37 Print Language: SAMI
[2020-02-01] MEDS ORDERED: ONDANSETRON 4 MG ODT TAB PO ONE (20:47)
== END 2020-02-01 22:30 | disposition home or self-care (01) ==
LOC: ED 18:17
DX: L03.211 Cellulitis of face (principal); H66.001 Acute suppurative otitis media without spontaneous rupture of ear drum, right ear; L73.9 Follicular disorder, unspecified; I10 Essential (primary) hypertension; E11.9 Type 2 diabetes mellitus without complications; J45.909 Unspecified asthma, uncomplicated; F17.200 Nicotine dependence, unspecified, uncomplicated; Z98.890 Other specified postprocedural states; Z79.1 Long term (current) use of non-steroidal anti-inflammatories (NSAID); Z79.2 Long term (current) use of antibiotics; Z79.4 Long term (current) use of insulin; Z79.899 Other long term (current) drug therapy; Z88.8 Allergy status to other drugs, medicaments and biological substances
CPT/HCPCS: 99282

== ENCOUNTER 2020-02-08 09:23 | Emergency (ER) | payer MEDICARE ==
--- NOTE | 2020-02-08 11:56 | XRay Report ---
CHEST 1 VIEW 02/08/2020 11:42 AM INDICATION / CLINICAL INFORMATION: hypertension. COMPARISON: None available. FINDINGS: SUPPORT DEVICES: None. HEART / MEDIASTINUM: No significant abnormality. LUNGS / PLEURA: A nipple shadow versus nodule is seen along the right lung base measuring 1.5 cm. The lungs are otherwise clear. No significant pleural effusion. No pneumothorax. ADDITIONAL FINDINGS: No significant additional findings. IMPRESSION: Right nipple shadow versus pulmonary nodule as above. A repeat AP view of the chest with nipple marke rs in place is recommended. Signer Name: Jaime Schofield MD Signed: 02/08/2020 11:52 AM Workstation Name: [id number]
[2020-02-08] MEDS ORDERED: oxyCODONE /ACETAMINOPHEN 5-325MG TAB PO ONE (11:57)
[2020-02-08 12:00] LABS: Basophils % (Auto) 0.9 % (0.0-1.8); Eosinophils # (Auto) 0.1 K/mm3 (0.0-0.4); Eosinophils % (Auto) 1.1 % (0.0-4.3); Hematocrit 32.6 % (35.5-45.6); Hemoglobin 10.9 gm/dl (11.8-15.2); Lymphocytes # (Auto) 1.4 K/mm3 (1.2-5.4); Lymphocytes % (Auto) 28.2 % (13.4-35.0); Mean Corpuscular HGB Conc 33 % (32-34); Mean Corpuscular Volume 83 fl (84-94); Monocytes # (Auto) 0.5 K/mm3 (0.0-0.8); Monocytes % (Auto) 11.1 % (0.0-7.3); Platelet Count 182 K/mm3 (140-440); Red Blood Count 3.93 M/mm3 (3.65-5.03); Red Cell Distribution Width 13.7 % (13.2-15.2)
[2020-02-08 12:07] LABS: INR 0.9 (0.87-1.13)
[2020-02-08 12:08] LABS: Partial Thromboplastin Time 27.5 Sec. (24.2-36.6)
[2020-02-08 12:21] LABS: Bilirubin,Urine NEG (Negative); Blood,Urine MOD (Negative); Color,Urine Straw (Yellow); Urobilinogen,Urine < 2.0 mg/dL (<2.0)
[2020-02-08 12:26] LABS: Amphetamine Screen,Urine Negative; Benzodiazepines Screen,Urine Negative; Cocaine Screen,Urine Negative; Methadone Screen,Urine Negative; Opiate Screen,Urine Negative
[2020-02-08 12:27] LABS: Alanine Aminotransferase 19 units/L (7-56); Albumin 2.7 g/dL (3.9-5); BUN/Creatinine Ratio 23; Blood Urea Nitrogen 18 mg/dL (9-20); Calcium 8.5 mg/dL (8.4-10.2); Hemolysis Index 3
[2020-02-08 12:28] LABS: Bilirubin,Direct < 0.2 mg/dL (0-0.2)
[2020-02-08 12:38] LABS: Cannabinoid Screen,Urine Positive
[2020-02-08] MEDS ORDERED: SODIUM CHLORIDE 0.9% 1000 ML 1,000 ML IV ONE (12:51)
[2020-02-08] MEDS ORDERED: INSULIN REGULAR, HUMAN 100 UNIT/ML 3ML VIAL IV ONE (13:47)
[2020-02-08] MEDS ORDERED: INSULIN REGULAR, HUMAN 100 UNITS/1 ML ONE (14:20)
[2020-02-08 14:42] VITALS: BP 166/88
--- NOTE | 2020-02-08 15:05 | Emergency Department Report ---
ED General Adult HPI - General Chief complaint: Pain General Stated complaint: PAIN/SWELLING Time Seen by Provider: 02/08/20 11:27 Source: patient, EMS Mode of arrival: Wheelchair Limitations: No Limitations - History of Present Illness Initial comments: Patient is a 54-year-old insulin-dependent diabetic with a history of noncompliance. He has been previously admitted here with a hyperosmotic state. He states that he took 10 units of NPH this morning. Despite this he states that EMS found his sugar to be 450. His chief complaint is "I am swollen all over". He claims that his thighs are swollen and that his feet are swollen and his hands are swollen. He denies any acute joint pain or swelling. On observation his generalized edema is very trace. Patient then states that he has problems with his feet. He has had diabetic foot ulcers in the past. He also points out multiple areas of postinflammatory hyperpigmentation. He states that his arms and legs hurt. He admits that he takes Percocet daily. He states that his last prescription was 2 weeks ago. He states he has a primary care physician. Patient does not complain of chest or abdominal pain or chest pain. Apparently he does have a history of diabetic neuropathy. -: Gradual, days(s) Location: upper extremity, lower extremity Radiation: non-radiation Severity scale (0 -10): 9 Quality: aching Consistency: constant Improves with: none - Related Data Previous Rx's Medication Instructions Recorded Last Taken Type Bacitracin Zinc Oint [Antibiotic 1 applicatio TP BID #1 tube 07/11/19 Unknown Rx Oint] Ibuprofen [Motrin 800 MG tab] 800 mg PO Q8HR PRN #20 tablet 07/11/19 Unknown Rx Clindamycin [Clindamycin CAP] 300 mg PO Q8H #30 cap 10/05/19 Unknown Rx Insulin NPH/Regular [NovoLIN 70/30] 14 unit SUB-Q BIDDIAB #1 vial 10/05/19 Unknown Rx lisinopriL [Zestril TAB] 10 mg PO QDAY #30 tablet 10/05/19 Unknown Rx oxyCODONE /ACETAMINOPHEN [Percocet 1 tab PO BID PRN #10 tablet 10/05/19 Unknown Rx 5/325 mg] Amoxicillin/Potassium Clav 1 each PO Q12H #20 tablet 02/01/20 Unknown Rx [Augmentin 875-125 Tablet] Ciprofloxacin HCl/Dexameth 1 drop OTIC BID #7.5 ml 02/01/20 Unknown Rx [Ciprodex Otic Suspension] Doxycycline Hyclate 100 mg PO Q12H #20 tablet. 02/01/20 Unknown Rx Ibuprofen [Motrin] 600 mg PO Q8H PRN #30 tablet 02/01/20 Unknown Rx Lisinopril/Hydrochlorothiazide 1 each PO DAILY #30 tablet 02/08/20 Unknown Rx [Zestoretic 10-12.5 mg Tablet] traMADoL [Ultram 50 MG tab] 50 mg PO Q6HR PRN #10 tablet 02/08/20 Unknown Rx Allergies Allergy/AdvReac Type Severity Reaction Status Date / Time sulfamethoxazole Allergy Itching Verified 02/02/19 23:13 [From Bactrim] trimethoprim [From Bactrim] Allergy Itching Verified 02/02/19 23:13 ED Review of Systems ROS: Stated complaint: PAIN/SWELLING Other details as noted in HPI Constitutional: other (Generalized swelling). denies: chills, fever Eyes: denies: eye pain, vision change ENT: denies: ear pain, throat pain Respiratory: denies: cough, shortness of breath, wheezing Cardiovascular: denies: chest pain, palpitations Endocrine: no symptoms reported Gastrointestinal: denies: abdominal pain, nausea, diarrhea Genitourinary: denies: urgency, dysuria Musculoskeletal: denies: back pain, joint swelling, arthralgia Skin: as per HPI Neurological: denies: headache, weakness, paresthesias Psychiatric: denies: anxiety, depression Hematological/Lymphatic: denies: easy bleeding, easy bruising ED Past Medical Hx - Past Medical History Previous Medical History?: Yes Hx Hypertension: Yes Hx Diabetes: Yes Hx Asthma: Yes Additional medical history: neuropathy, enlarge heart - Surgical History Past Surgical History?: Yes Additional Surgical History: Benign brain tumor removal. right ear - Social History Substance Use Type: Marijuana - Medications Home Medications: Home Medications Medication Instructions Recorded Confirmed Last Taken Type Bacitracin Zinc Oint [Antibiotic 1 applicatio TP BID #1 tube 07/11/19 10/03/19 U nknown Rx Oint] Ibuprofen [Motrin 800 MG tab] 800 mg PO Q8HR PRN #20 tablet 07/11/19 10/03/19 Unknown Rx Clindamycin [Clindamycin CAP] 300 mg PO Q8H #30 cap 10/05/19 Unknown Rx Insulin NPH/Regular [NovoLIN 70/30] 14 unit SUB-Q BIDDIAB #1 vial 10/05/19 Unknown Rx lisinopriL [Zestril TAB] 10 mg PO QDAY #30 tablet 10/05/19 Unknown Rx oxyCODONE /ACETAMINOPHEN [Percocet 1 tab PO BID PRN #10 tablet 10/05/19 Unknown Rx 5/325 mg] Amoxicillin/Potassium Clav 1 each PO Q12H #20 tablet 02/01/20 Unknown Rx [Augmentin 875-125 Tablet] Ciprofloxacin HCl/Dexameth 1 drop OTIC BID #7.5 ml 02/01/20 Unknown Rx [Ciprodex Otic Suspension] Doxycycline Hyclate 100 mg PO Q12H #20 tablet. 02/01/20 Unknown Rx Ibuprofen [Motrin] 600 mg PO Q8H PRN #30 tablet 02/01/20 Unknown Rx Lisinopril/Hydrochlorothiazide 1 each PO DAILY #30 tablet 02/08/20 Unknown Rx [Zestoretic 10-12.5 mg Tablet] traMADoL [Ultram 50 MG tab] 50 mg PO Q6HR PRN #10 tablet 02/08/20 Unknown Rx ED Physical Exam - General Limitations: No Limitations General appearance: alert, in no apparent distress, cachectic (Somewhat) - Head Head exam: Present: atraumatic, normocephalic - Eye Eye exam: Present: normal appearance. Absent: scleral icterus - ENT ENT exam: Present: mucous membranes moist - Neck Neck exam: Present: normal inspection. Absent: tenderness, meningismus - Respiratory Respiratory exam: Present: normal lung sounds bilaterally. Absent: respiratory distress - Cardiovascular Cardiovascular Exam: Present: regular rate, normal rhythm. Absent: systolic murmur, diastolic murmur, rubs, gallop - GI/Abdominal GI/Abdominal exam: Present: soft, normal bowel sounds. Absent: distended, tenderness, guarding, rebound, rigid - Rectal Rectal exam: Present: deferred - Extremities Exam Extremities exam: Present: normal inspection, other (Trace ankle edema bilaterally) - Back Exam Back exam: Present: normal inspection - Neurological Exam Neurological exam: Present: alert, oriented X3, CN II-XII intact. Absent: motor sensory deficit - Psychiatric Psychiatric exam: Present: normal affect, normal mood - Skin Skin exam: Present: warm, dry, intact, other (Several areas of postinflammatory hyperpigmentation. I do not see any active ulcers or infected areas). Absent: rash ED Course Vital Signs 02/08/20 02/08/20 02/08/20 09:38 10:41 10:45 Temperature 97.4 F L Pulse Rate 84 87 80 Respiratory 18 16 12 Rate Blood Pressure 166/93 167/84 O2 Sat by Pulse 100 100 100 Oximetry 02/08/20 02/08/20 02/08/20 11:01 11:15 11:31 Temperature Pulse Rate 87 79 79 Respiratory 19 9 L 16 Rate Blood Pressure 167/84 167/84 167/84 O2 Sat by Pulse 100 100 100 Oximetry 02/08/20 02/08/20 02/08/20 11:45 12:00 12:15 Temperature Pulse Rate 83 85 82 Respiratory 12 13 14 Rate Blood Pressure 167/84 O2 Sat by Pulse 99 100 100 Oximetry 02/08/20 02/08/20 02/08/20 12:21 12:31 12:45 Temperature Pulse Rate 84 81 Respiratory 18 15 22 Rate Blood Pressure O2 Sat by Pulse 96 100 Oximetry 02/08/20 02/08/20 02/08/20 13:01 13:15 13:30 Temperature Pulse Rate 88 83 79 Respiratory 22 16 19 Rate Blood Pressure 155/89 169/85 O2 Sat by Pulse 100 100 100 Oximetry 02/08/20 02/08/20 02/08/20 13:45 13:58 14:01 Temperature Pulse Rate 82 85 Respiratory 16 18 17 Rate Blood Pressure 169/85 166/88 O2 Sat by Pulse 100 99 99 Oximetry 02/08/20 14:15 Temperature Pulse Rate 85 Respiratory 19 Rate Blood Pressure 166/88 O2 Sat by Pulse 99 Oximetry - Reevaluation(s) Reevaluation #1: Patient was given IV fluids and IV insulin. He was deemed appropriate for outpatient management. 02/08/20 15:07 ED Medical Decision Making - Lab Data Result diagrams: 02/08/20 11:35 02/08/20 11:35 Laboratory Results - last 24 hr 02/08/20 02/08/20 02/08/20 11:35 11:35 11:35 WBC 4.9 RBC 3.93 Hgb 10.9 L Hct 32.6 L MCV 83 L MCH 28 MCHC 33 RDW 13.7 Plt Count 182 Lymph % (Auto) 28.2 Moffat % (Auto) 11.1 H Eos % (Auto) 1.1 Baso % (Auto) 0.9 Lymph # (Auto) 1.4 Moffat # (Auto) 0.5 Eos # (Auto) 0.1 Baso # (Auto) 0.0 Seg Neutrophils % 58.7 Seg Neutrophils # 2.9 PT 12.0 L INR 0.90 APTT 27.5 Sodium 132 L Potassium 5.1 H Chloride 100.1 Carbon Dioxide 24 Anion Gap 13 BUN 18 Creatinine 0.8 Estimated GFR > 60 BUN/Creatinine Ratio 23 Glucose 394 H POC Glucose Calcium 8.5 Magnesium 1.80 Total Bilirubin < 0.20 Direct Bilirubin < 0.2 Indirect Bilirubin 0.0 AST 16 ALT 19 Alkaline Phosphatase 172 H NT-Pro-B Natriuret Pep 179.9 Total Protein 5.9 L Albumin 2.7 L Albumin/Globulin Ratio 0.8 Urine Color Urine Turbidity Urine pH Ur Specific Cisco Urine Protein Urine Glucose (UA) Urine Ketones Urine Blood Urine Nitrite Urine Bilirubin Urine Urobilinogen Ur Leukocyte Esterase Urine WBC (Auto) Urine RBC (Auto) U Epithel Cells (Auto) Urine Opiates Screen Urine Methadone Screen Ur Barbiturates Screen Ur Phencyclidine Scrn Ur Amphetamines Screen U Benzodiazepines Scrn Urine Cocaine Screen U Marijuana (THC) Screen Drugs of Abuse Note 02/08/20 02/08/20 02/08/20 14:36 Unknown Unknown WBC RBC Hgb Hct MCV MCH MCHC RDW Plt Count Lymph % (Auto) Moffat % (Auto) Eos % (Auto) Baso % (Auto) Lymph # (Auto) Moffat # (Auto) Eos # (Auto) Baso # (Auto) Seg Neutrophils % Seg Neutrophils # PT INR APTT Sodium Potassium Chloride Carbon Dioxide Anion Gap BUN Creatinine Estimated GFR BUN/Creatinine Ratio Glucose POC Glucose 308 H Calcium Magnesium Total Bilirubin Direct Bilirubin Indirect Bilirubin AST ALT Alkaline Phosphatase NT-Pro-B Natriuret Pep Total Protein Albumin Albumin/Globulin Ratio Urine Color Straw Urine Turbidity Clear Urine pH 6.0 Ur Specific Cisco 1.023 Urine Protein 100 mg/dl Urine Glucose (UA) >=500 Urine Ketones Neg Urine Blood Mod Urine Nitrite Neg Urine Bilirubin Neg Urine Urobilinogen < 2.0 Ur Leukocyte Esterase Neg Urine WBC (Auto) 1.0 Urine RBC (Auto) 16.0 U Epithel Cells (Auto) < 1.0 Urine Opiates Screen Negative Urine Methadone Screen Negative Ur Barbiturates Screen Negative Ur Phencyclidine Scrn Negative Ur Amphetamines Screen Negative U Benzodiazepines Scrn Negative Urine Cocaine Screen Negative U Marijuana (THC) Screen Positive Drugs of Abuse Note Disclamer Critical care attestation.: If time is entered above; I have spent that time in minutes in the direct care of this critically ill patient, excluding procedure time. ED Disposition Clinical Impression: Hyperglycemia due to type 1 diabetes mellitus, Essential hypertension Diabetic neuropathy Qualifiers: Diabetes mellitus type: type 1 Diabetes mellitus complication detail: with other neurological complication Qualified Code(s): E10.49 - Type 1 diabetes mellitus with other diabetic neurological complication Chronic pain Qualifiers: Chronic pain type: chronic pain syndrome Qualified Code(s): G89.4 - Chronic pain syndrome Disposition: TO HOME OR SELFCARE Is pt being admited?: No Does the pt Need Aspirin: No Condition: Stable Instructions: Insulin Treatment for Diabetes Mellitus, Diabetes Mellitus and Foot Care, Type 1 Diabetes Mellitus, Self Care, Adult, [id number], Diabetic Neuropathy, Hypertension, Adult, Diabetes Mellitus Type 2 in Adults (ED), Hypertension (ED) Additional Instructions: Follow-up with your primary care provider. Return any acute change or problem. Call your glucose levels carefully. Prescriptions: traMADoL [Ultram 50 MG tab] 50 mg PO Q6HR PRN #10 tablet PRN Reason: Pain Lisinopril/Hydrochlorothiazide [Zestoretic 10-12.5 mg Tablet] 1 each PO DAILY #30 tablet Referrals: PRIMARY CARE, [Primary Care Provider] - 2-3 Days [facility] [Provider Group] - 2-3 Days Time of Disposition: 15:09
[2020-02-08] MEDS ORDERED: SODIUM CHLORIDE 0.9% 1000 ML 1,000 ML ONE (18:54)
== END 2020-02-08 15:27 | disposition home or self-care (01) ==
LOC: ED 09:23
DX: E10.65 Type 1 diabetes mellitus with hyperglycemia (principal); E10.40 Type 1 diabetes mellitus with diabetic neuropathy, unspecified; G89.4 Chronic pain syndrome
CPT/HCPCS: 36415; 71045; 80048; 80076; 80307; 81001; 82962; 83735; 83880; 85025; 85610; 85730; 96361; 96374; J1815

== ENCOUNTER 2020-07-14 04:41 | Emergency (ER) | payer MEDICARE ==
[2020-07-14] MEDS ORDERED: CYCLOBENZAPRINE 10 MG TAB PO ONE (09:30)
--- NOTE | 2020-07-14 09:33 | Emergency Department Report ---
ED General Adult HPI - General Chief complaint: Pain General Stated complaint: BODY ACHES PUI?: No Time Seen by Provider: 07/14/20 09:04 Source: patient, EMS Mode of arrival: Ambulatory Limitations: No Limitations - History of Present Illness Initial comments: 55-year-old male with a past medical history of hypertension, asthma, noninsulin-dependent type 2 diabetes, peripheral neuropathy, chronic pain and medication noncompliance presents to the ER today with complaints of generalized pain and swelling in his bilateral lower extremity. Patient states that he is hurting all over including "his ass". He has a history of chronic pain but states that this pain is worse in the past 2 to 3 days. He reports chronic swelling to his bilateral lower extremities but states that over the past 2 to 3 days it has been worse. He states that he used to be on morphine and Percocet but he has been "out for a while". Patient reports that he does have a primary care doctor but he states that "he has not seen her in a while". He states "I am done with her". He states that the only thing to do is talking on the phone and that is it. In addition to the pain and the swelling he complains of generalized fatigue. He denies any chest pain, shortness of breath, fever, chills or any additional symptoms at this time. MD Complaint: Generalized pain/extremity swelling -: Gradual (Chronic ) - Related Data Previous Rx's Medication Instructions Recorded Last Taken Type Insulin NPH/Regular [NovoLIN 70/30] 14 unit SUB-Q BIDDIAB #1 vial 10/05/19 Unknown Rx lisinopriL [Zestril TAB] 10 mg PO QDAY #30 tablet 10/05/19 Unknown Rx Acetaminophen/Codeine [Tylenol 1 tab PO Q4HR PRN #12 tablet 07/14/20 Unknown Rx /Codeine # 3 tab] Lisinopril/Hydrochlorothiazide 1 each PO DAILY #30 tablet 07/14/20 Unknown Rx [Zestoretic 10-12.5 mg Tablet] tiZANidine [Zanaflex 4mg TAB] 4 mg PO TID PRN #30 tablet 07/14/20 Unknown Rx Allergies Allergy/AdvReac Type Severity Reaction Status Date / Time sulfamethoxazole Allergy Itching Verified 02/02/19 23:13 [From Bactrim] trimethoprim [From Bactrim] Allergy Itching Verified 02/02/19 23:13 ED Review of Systems ROS: Stated complaint: BODY ACHES Other details as noted in HPI Comment: All other systems reviewed and negative Constitutional: other (generalized fatigue ). denies: chills, fever ENT: denies: ear pain, throat pain, dental pain, hearing loss, epistaxis, congestion Respiratory: denies: cough, shortness of breath, SOB with exertion, SOB at rest, wheezing Cardiovascular: denies: chest pain, palpitations, dyspnea on exertion, edema, syncope, paroxysmal nocturnal dyspnea Gastrointestinal: denies: abdominal pain, nausea, vomiting, diarrhea, constipation, hematemesis, hematochezia Genitourinary: denies: urgency, dysuria, frequency, hematuria, discharge, testicular pain, testicular mass Musculoskeletal: joint swelling. denies: back pain, arthralgia Skin: denies: rash, lesions Neurological: denies: headache, weakness, numbness, paresthesias, confusion, abnormal gait, vertigo Psychiatric: denies: anxiety, depression, auditory hallucinations, visual hallucinations, homicidal thoughts Hematological/Lymphatic: denies: easy bleeding, easy bruising ED Past Medical Hx - Past Medical History Previous Medical History?: Yes Hx Hypertension: Yes Hx Diabetes: Yes Hx Asthma: Yes Additional medical history: neuropathy, enlarge heart - Surgical History Past Surgical History?: Yes Additional Surgical History: Benign brain tumor removal. right ear - Social History Smoking Status: Current Every Day Smoker Substance Use Type: Marijuana - Medications Home Medications: Home Medications Medication Instructions Recorded Confirmed Last Taken Type Insulin NPH/Regular [NovoLIN 70/30] 14 unit SUB-Q BIDDIAB #1 vial 10/05/19 Unknown Rx lisinopriL [Zestril TAB] 10 mg PO QDAY #30 tablet 10/05/19 Unknown Rx Acetaminophen/Codeine [Tylenol 1 tab PO Q4HR PRN #12 tablet 07/14/20 Unknown Rx /Codeine # 3 tab] Lisinopril/Hydrochlorothiazide 1 each PO DAILY #30 tablet 07/14/20 Unknown Rx [Zestoretic 10-12.5 mg Tablet] tiZANidine [Zanaflex 4mg TAB] 4 mg PO TID PRN #30 tablet 07/14/20 Unknown Rx ED Physical Exam - General Limitations: No Limitations General appearance: alert, other (patient agitated, moaning and repeated stating that he is in pain) - Head Head exam: Present: atraumatic, normocephalic, normal inspection - Eye Eye exam: Present: normal appearance, PERRL, EOMI Pupils: Present: normal accommodation - ENT ENT exam: Present: normal exam, mucous membranes moist - Neck Neck exam: Present: normal inspection, full ROM - Respiratory Respiratory exam: Present: normal lung sounds bilaterally. Absent: respiratory distress - Cardiovascular Cardiovascular Exam: Present: regular rate, normal rhythm, normal heart sounds - GI/Abdominal GI/Abdominal exam: Present: soft. Absent: distended, tenderness, guarding, rebound - Extremities Exam Extremities exam: Present: full ROM, normal capillary refill, other (Couple small chronic wounds noted to bilateral lower legs; there is mild nonpitting swelling noted to the lower legs, ankle and feet; He has mild diffuse ttp to bilateral LE; no neurovascular compromise noted) - Back Exam Back exam: Present: normal inspection, full ROM. Absent: paraspinal tenderness, vertebral tenderness - Neurological Exam Neurological exam: Present: alert, oriented X3, CN II-XII intact, normal gait. Absent: motor sensory deficit - Psychiatric Psychiatric exam: Present: agitated. Absent: homicidal ideation, suicidal ideation - Skin Skin exam: Present: other (Chronic wounds noted to his lower extremities, no signs of acute infection) ED Course Vital Signs 07/14/20 07/14/20 07/14/20 04:57 10:01 10:45 Temperature 97.8 F Pulse Rate 84 Respiratory 20 18 16 Rate Blood Pressure 167/82 Blood Pressure [Left] O2 Sat by Pulse 98 Oximetry 07/14/20 07/14/20 07/14/20 12:21 12:51 14:50 Temperature Pulse Rate 74 Respiratory 16 18 16 Rate Blood Pressure Blood Pressure 204/104 [Left] O2 Sat by Pulse 97 Oximetry 07/14/20 07/14/20 15:09 16:12 Temperature 97.9 F Pulse Rate 74 82 Respiratory 18 Rate Blood Pressure 204/104 Blood Pressure 185/88 [Left] O2 Sat by Pulse 97 Oximetry ED Medical Decision Making - Lab Data Result diagrams: 07/14/20 10:18 07/14/20 10:18 - EKG Data EKG shows normal: sinus rhythm Rate: normal (79) - EKG Data Interpretation: nonspecific ST-T wave kayy (III, aVF), LVH, other - Radiology Data Radiology results: report reviewed Patient: EDUARDO RUSSELL MR#: [id number] : 1965 Acct:[id number] Age/Sex: 55 / M ADM Date: 07/14/20 Loc: ED Attending Dr: Ordering Physician: IRMA KEMP Date of Service: 07/14/20 Procedure(s): XR chest routine 2V Accession Number(s): [id number] cc: IRMA KEMP Fluoro Time In Minutes: CHEST 2 VIEWS INDICATION / CLINICAL INFORMATION: weakness. FINDINGS: SUPPORT DEVICES: None. HEART / MEDIASTINUM: No significant abnormality. LUNGS / PLEURA: No significant pulmonary or pleural abnormality. No pneumothorax. ADDITIONAL FINDINGS: No significant additional findings. IMPRESSION: 1. No acute findings. Signer Name: Alexy Vale MD Signed: 07/14/2020 9:52 AM Workstation Name: [id number] Transcribed By: BC Dictated By: Alexy Vale MD Electronically Authenticated By: Alexy Vale MD Signed Date/Time: 07/14/20951 DD/ 0 TD/TT: - Medical Decision Making 55-year-old male with a past medical history of hypertension, asthma, noninsulin-dependent type 2 diabetes, peripheral neuropathy, chronic pain and medication noncompliance presents to the ER today with complaints of generalized pain and swelling in his bilateral lower extremity. Patient states that he is hurting all over including "his ass". He has a history of chronic pain but states that this pain is worse in the past 2 to 3 days. He reports chronic swelling to his bilateral lower extremities but states that over the past 2 to 3 days it has been worse. He states that he used to be on morphine and Percocet but he has been "out for a while". Patient reports that he does have a primary care doctor but he states that "he has not seen her in a while". He states "I am done with her". He states that the only thing to do is talking on the phone and that is it. In addition to the pain and the swelling he complains of generalized fatigue. He denies any chest pain, shortness of breath, fever, chills or any additional symptoms at this time. 0930: Informed patient I will order some labs, but for now he will get oral oxycodone and muscle relaxer for pain. Patient got agitated and upset stating that the oxycodone is going to take too long to kick in and is requesting morphine. Informed patient that at this time there is no indication for morphine. Patient still was not pleased, keeps stating that he is in severe pain and that he has been waiting out in the waiting room for 5 hours and pain. Again informed patient that I will give him some oral oxycodone and his muscle relaxer for pain at this time. His pain is chronic, there is nothing acute about his pain. Patient felt like I was not listening to him and requested that he speak to someone else. Charge nurse Chula was called and she spoke to patient. She Informed him that we are offering pain medication but he sounds like he is refusing it. He then states he is not refusing the medication, he just knows that the oxycodone is going to take a long time to kick in. Patient finally settled down and agreed to take what was being offered. 1628: CXR shows nothing acute. Labs reviewed, patient blood sugar was elevated at 442 but after a liter of fluids and 7 units of IV insulin his fingerstick blood sugar was 270. No DKA today. His trop was mildly elevated at 0.036, and appears to be trending down after 3hr repeat to 0.031. EKG shows no STEMI or acute ischemic changes or significant dysrhythmias. And patient has no specific complaints of chest pain or SOB, just his chronic generalized pain. Venous Doppler shows no DVT. He does have some chronic wounds to his leg without any infection. No evidence of acute arterial occlusion or compartment syndrome. Patient BP improved after hydralazine. He admitted that he has been out of his blood pressure medication. Discussed case and results with Dr Grey, since patient main complaint is his chronic generalized pain, he has no specific chest pain and his troponin is trending down and no acute changes on EKG, he agree that patient can discharged. While discussing lab results with patient, he admitted that he was told about his troponin being elevated before. He claims that he has never seen a shipping weigher or followed up with shipping weigher and he has never had stress test. He denies any chest pain or SOB currently. He just complains of generalized madelin n, typical of his chronic pain and was complaining that he still hurting all over and feels like we did not control his pain very well here in the ER today. Informed him that the most we can give him is tylenol 3, and muscle relaxer and he immediately stated that this was not going to work. Informed him he needs to see pain management which is when he admitted that he has seen a pain management doctor "up stairs" and they refused to give him something for pain. Informed him that he will need to follow up with his PCP, and he immediately states "she does not know what she is doing". The entire time patient was complaining of pain, he observed to be moving about the bed in no distress. He was not toxic or ill appearing and neurologically intact with normal gait. Informed patient that there is no indication for admission to hospital to day, and there is no indication for any stronger pain medication at this time. He will be given referral to another PCP and shipping weigher for follow up. Patient was stable at time of d/c. Critical care attestation.: If time is entered above; I have spent that time in minutes in the direct care of this critically ill patient, excluding procedure time. ED Disposition Clinical Impression: Chronic pain, Peripheral edema, Uncontrolled diabetes mellitus, Elevated troponin Disposition: DC-01 TO HOME OR SELFCARE Is pt being admited?: No Does the pt Need Aspirin: No Condition: Stable Instructions: Chronic Pain, Adult, Type 2 Diabetes Mellitus, Self Care, Adult, [id number], Peripheral Edema, Diabetes Mellitus Type 2 in Adults (ED) Additional Instructions: It is important that you are compliant with all your medications (take you medications daily and as prescribed) and compliant with follow-up with your primary care doctor for continued monitoring of your diabetes and other chronic medical issues. A primary care doctor will be listed on your discharge instruction for you to follow-up. Primary care doctor can also give her referral to pain management to help control your chronic pain. Also recommend following up with shipping weigher for outpatient cardiac evaluation (stress test and echocardiography). Return to the ER if your symptoms worsens or changes in any way specifically if you start having chest pain and/or shortness of breath. Prescriptions: Acetaminophen/Codeine [Tylenol /Codeine # 3 tab] 1 tab PO Q4HR PRN #12 tablet PRN Reason: Pain tiZANidine [Zanaflex 4mg TAB] 4 mg PO TID PRN #30 tablet PRN Reason: Pain Lisinopril/Hydrochlorothiazide [Zestoretic 10-12.5 mg Tablet] 1 each PO DAILY #30 tablet Referrals: TONY COE MD [Staff Physician] - 3-5 Days ELBA LEON MD [Staff Physician] - 3-5 Days Forms: Work/School Release Form(ED) Time of Disposition: 14:47
--- NOTE | 2020-07-14 09:56 | XRay Report ---
CHEST 2 VIEWS INDICATION / CLINICAL INFORMATION: weakness. FINDINGS: SUPPORT DEVICES: None. HEART / MEDIASTINUM: No significant abnormality. LUNGS / PLEURA: No significant pulmonary or pleural abnormality. No pneumothorax. ADDITIONAL FINDINGS: No significant additional findings. IMPRESSION: 1. No acute findings. Signer Name: Alexy Vale MD Signed: 07/14/2020 9:52 AM Workstation Name: [id number]
[2020-07-14] MEDS ORDERED: oxyCODONE ER 10 MG TAB PO ONE (10:00)
[2020-07-14 11:02] LABS: Basophils # (Auto) 0.1 K/mm3 (0.0-0.1); Basophils % (Auto) 0.7 % (0.0-1.8); Eosinophils # (Auto) 0.1 K/mm3 (0.0-0.4); Eosinophils % (Auto) 1.4 % (0.0-4.3); Hematocrit 33.7 % (35.5-45.6); Hemoglobin 10.9 gm/dl (11.8-15.2); Lymphocytes # (Auto) 1.4 K/mm3 (1.2-5.4); Lymphocytes % (Auto) 19.6 % (13.4-35.0); Mean Corpuscular HGB Conc 32 % (32-34); Mean Corpuscular Volume 83 fl (84-94); Monocytes # (Auto) 0.6 K/mm3 (0.0-0.8); Monocytes % (Auto) 8.5 % (0.0-7.3); Platelet Count 265 K/mm3 (140-440); Red Blood Count 4.05 M/mm3 (3.65-5.03); Red Cell Distribution Width 14.7 % (13.2-15.2)
[2020-07-14 11:13] LABS: Alanine Aminotransferase 31 units/L (7-56); Albumin 2.6 g/dL (3.9-5); BUN/Creatinine Ratio 18; Blood Urea Nitrogen 18 mg/dL (9-20); Calcium 8.1 mg/dL (8.4-10.2); Hemolysis Index 2
[2020-07-14] MEDS ORDERED: SODIUM CHLORIDE 0.9% 1000 ML 1,000 ML IV ONE (11:16)
[2020-07-14] MEDS ORDERED: INSULIN REGULAR, HUMAN 100 UNITS/1 ML IV ONE (11:18)
[2020-07-14 11:28] LABS: LDL Cholesterol,Direct 161 mg/dL (50-130)
[2020-07-14] MEDS ORDERED: KETOROLAC 30 MG/1 ML INJ IV ONE (11:55)
[2020-07-14] MEDS ORDERED: ONDANSETRON 4 MG/2 ML INJ ONE (12:08)
[2020-07-14] MEDS ORDERED: PROMETHAZINE 25 MG TAB PO ONE (12:10)
--- NOTE | 2020-07-14 12:15 | Vascular Lab Report ---
DUPLEX DOPPLER LOWER EXTREMITY VEINS, BILATERAL INDICATION: Bilateral LE swelling. TECHNIQUE: Duplex doppler imaging was performed through the veins of both lower extremities using ve nous compression and other maneuvers. COMPARISON: No relevant prior imaging study available. FINDINGS: Right Common femoral vein: Negative. Right Superficial femoral vein: Negative. Right Popliteal vein: Negative. Right Calf veins: Negative. Left Common femoral vein: Negative. Left Superficial femoral vein: Negative. Left Popliteal vein: Negative. Left Calf veins: Negative. Additional findings: None. IMPRESSION: No sonographic evidence for DVT in either lower extremity. Signer Name: Reji Bravo Jr, MD Signed: 07/14/2020 12:10 PM Workstation Name: [id number]
[2020-07-14 12:51] LABS: Bilirubin,Urine NEG (Negative); Blood,Urine MOD (Negative); Color,Urine Colorless (Yellow); Urobilinogen,Urine < 2.0 mg/dL (<2.0)
[2020-07-14 14:17] LABS: Amphetamine Screen,Urine PRESUMPTIVE NEGATIVE; Benzodiazepines Screen,Urine PRESUMPTIVE NEGATIVE; Cannabinoid Screen,Urine PRESUMPTIVE POSITIVE; Cocaine Screen,Urine PRESUMPTIVE NEGATIVE; Methadone Screen,Urine PRESUMPTIVE NEGATIVE; Opiate Screen,Urine PRESUMPTIVE NEGATIVE
[2020-07-14 14:58] LABS: HDL Cholesterol 56 mg/dL (40-59)
[2020-07-14] MEDS ORDERED: hydrALAZINE 20 MG/1 ML INJ IV ONE (15:02)
[2020-07-14 16:13] VITALS: BP 185/88
--- NOTE | 2020-07-16 10:42 | Electrocardiograph Report ---
[facility] Test Date: 2020-07-14 Test Time: 11:44:28 Pat Name: EDUARDO RUSSELL Department: Room: Gender: M Agricultural Education Instructor: RYDER : 1965 Requested By: IRMA KEMP Order Number: [id number] Reading MD: Danii Garcia Measurements Intervals Lander Rate: 79 P: 2 NC: 183 QRS: 14 QRSD: 94 T: -9 QT: 382 QTc: 438 Interpretive Statements Sinus rhythm Probable left atrial enlargement No previous ECG available for comparison Electronically Signed On 07-16-2020 10:42:20 EDT by Danii Garcia
== END 2020-07-14 17:02 | disposition home or self-care (01) ==
LOC: ED 04:41
DX: E11.40 Type 2 diabetes mellitus with diabetic neuropathy, unspecified (principal); G89.29 Other chronic pain; R77.8 Other specified abnormalities of plasma proteins; R60.9 Edema, unspecified; I10 Essential (primary) hypertension; J45.909 Unspecified asthma, uncomplicated; F12.90 Cannabis use, unspecified, uncomplicated; F17.200 Nicotine dependence, unspecified, uncomplicated; Z79.899 Other long term (current) drug therapy; Z88.8 Allergy status to other drugs, medicaments and biological substances; Z88.2 Allergy status to sulfonamides; Z98.890 Other specified postprocedural states
CPT/HCPCS: 36415; 71046; 80053; 80061; 80307; 81001; 82962; 83735; 83880; 84484; 85025; 93005; 93970; 96361; 96374; 96375; 99285; J0360; J1885; J2405; J7030; Q0169; J1815

== ENCOUNTER 2020-10-07 08:27 | Emergency (ER) | payer MEDICARE ==
[2020-10-07] MEDS ORDERED: IBUPROFEN 800 MG TAB PO ONE (08:46)
--- NOTE | 2020-10-07 08:48 | Emergency Department Report ---
Minor Respiratory - HPI Chief Complaint: Earache Stated Complaint: BODY ACHES Time Seen by Provider: 10/07/20 08:39 Duration: 4 Days Pain Location: Ear Severity: mild Minor Respiratory: Yes Able to Tolerate Fluids, Yes Ear Pain, No Rhinorrhea, No Sore Throat, No Cough, No Sick Contacts, No Hemoptysis, No Chest Pain, No Shortness of Breath, No Fever Other History: Patient is a 55-year-old -[place] male that comes to the emergency room complaining of chronic pain. He states his body hurts all over. He especially is complaining of pain in his right ear. He told EMS that he was on antibiotics and pain meds but he has completed those so he threw the bottles away: He was unable to tell us what the names of those were. Patient endorses chronic pain for which he takes Percocet. He states he is out of his Percocet. Vital signs are normal. Patient denies chest pain or shortness of breath. ED Review of Systems ROS: Stated complaint: BODY ACHES Other details as noted in HPI Comment: All other systems reviewed and negative ED Past Medical Hx - Past Medical History Previous Medical History?: Yes Hx Hypertension: Yes Hx Diabetes: Yes Hx Asthma: Yes Additional medical history: neuropathy, enlarge heart - Surgical History Past Surgical History?: Yes Additional Surgical History: Benign brain tumor removal. right ear - Family History Family history: no significant - Social History Smoking Status: Current Every Day Smoker Substance Use Type: Marijuana - Medications Home Medications: Home Medications Medication Instructions Recorded Confirmed Last Taken Type Insulin NPH/Regular [NovoLIN 70/30] 14 unit SUB-Q BIDDIAB #1 vial 10/05/19 Unknown Rx Acetaminophen/Codeine [Tylenol 1 tab PO Q4HR PRN #12 tablet 07/14/20 Unknown Rx /Codeine # 3 tab] Lisinopril/Hydrochlorothiazide 1 each PO DAILY #30 tablet 07/14/20 Unknown Rx [Zestoretic 10-12.5 mg Tablet] tiZANidine [Zanaflex 4mg TAB] 4 mg PO TID PRN #30 tablet 07/14/20 Unknown Rx Cetirizine HCl [ZyrTEC] 10 mg PO DAILY #30 capsule 10/07/20 Unknown Rx Minor Respiratory Exam - Exam General: Vital signs noted. No distress. Alert and acting appropriately. HEENT: Yes Moist Mucous Membranes, No Pharyngeal Erythema, No Pharyngeal Exudates, No Rhinorrhea, No Conjuctival Injection, No Frontal Tenderness, No Maxillary Tenderness Ear: Both EAC Discharge (CERUMEN), Neither TM Bulge, Neither TM Erythema, Neither EAC Pain Neck: Yes Supple, No Adenopathy Lungs: Yes Good Air Exchange, No Wheezes, No Ronchi, No Stridor, No Cough, No Labored Respirations, No Retractions, No Use of Accessory Muscles, No Other Abnormal Lung Sounds Heart: Yes Regular, No Murmur Abdomen: Yes Normal Bowel Sounds, No Tenderness, No Peritoneal Signs Skin: No Rash, No Edema Neurologic: Alert and oriented, no deficits. Musculoskeletal: Unremarkable. ED Course Vital Signs 10/07/20 10/07/20 08:30 08:42 Temperature 98.4 F Pulse Rate 90 Respiratory 16 16 Rate Blood Pressure 142/84 [Right] O2 Sat by Pulse 99 98 Oximetry ED Medical Decision Making - Medical Decision Making Vital Signs 10/07/20 10/07/20 10/07/20 08:30 08:42 09:01 Temperature 98.4 F Pulse Rate 90 Respiratory 16 16 18 Rate Blood Pressure 142/84 [Right] O2 Sat by Pulse 99 98 Oximetry EARS FLUSHED OFFERED MOTRIN OR TYLENOL- HE STATED MY PERCOCET DOES NOT EVEN HELP HE THEN ASKED FOR SHOT HE THEN SENT NURSE TO ME TO ASK FOR TORADOL AND BENADRYL TORADOL IM GIVEN AND BENADRYL PO DC HOME WITH DC PLAN OF CARE INCLUDING PCP FOLLOW UP. HE SEES MD AT [facility] BUT ALSO GIVEN REFERRAL TO OUR PCP. HE VERBALIZES UNDERSTANDING. PT AMBULATORY AND TAKING PO On discharge patient was belligerent, yelling at the nurse and making a scene. He states that every time he comes here we never want to do anything for his pain. The more that the nurse tried to explain to him that this was not the place that he needs to go for his chronic pain he escalated. Security was called. On exiting the ER patient was yelling, ambulating just fine. - Differential Diagnosis OM/CERUMEN IMPACTION Critical care attestation.: If time is entered above; I have spent that time in minutes in the direct care of this critically ill patient, excluding procedure time. ED Disposition Clinical Impression: Ear pain, right, Drug-seeking behavior, Chronic pain Disposition: DC-01 TO HOME OR SELFCARE Is pt being admited?: No Does the pt Need Aspirin: No Condition: Stable Instructions: Earache, Adult Additional Instructions: MOTRIN OR TYLENOL FOR PAIN OVER THE COUNTER CERUMENEX CAN HELP WITH EXCESS WAX BUILD UP MED ORDERED TODAY WILL HELP WITH SENSATION OF FULLNESS Prescriptions: Cetirizine HCl [ZyrTEC] 10 mg PO DAILY #30 capsule Referrals: TONY COE MD [Staff Physician] - 3-5 Days Time of Disposition: 09:19
[2020-10-07] MEDS ORDERED: diphenhydrAMINE 25 MG CAP PO ONE (08:56)
[2020-10-07] MEDS ORDERED: KETOROLAC 30 MG/1 ML INJ IM ONE (08:56)
[2020-10-07 09:56] VITALS: BP 142/68
== END 2020-10-07 09:47 | disposition home or self-care (01) ==
LOC: ED 08:27
DX: H92.01 Otalgia, right ear (principal); G89.29 Other chronic pain; Z76.5 Malingerer [conscious simulation]; I10 Essential (primary) hypertension; E11.9 Type 2 diabetes mellitus without complications; J45.909 Unspecified asthma, uncomplicated; F17.200 Nicotine dependence, unspecified, uncomplicated; F12.10 Cannabis abuse, uncomplicated; Z98.890 Other specified postprocedural states; Z79.4 Long term (current) use of insulin; Z79.899 Other long term (current) drug therapy; Z88.8 Allergy status to other drugs, medicaments and biological substances
CPT/HCPCS: 96372; 99283; J1885